=== PATIENT | female | born 1980 | race Caucasian/White ===

== ENCOUNTER 2018-08-20 17:32 | Inpatient (IN) | payer MEDICAID, SELFPAY ==
[2018-08-20 17:33] VITALS: BP 142/110; PULSE 120; RESP 18; TEMP 36.8; O2SAT 94; BMI 23.9
[2018-08-20 18:54] LABS: ALB/GLOB Ratio 0.9 RATIO (0.9-2.4); AST(SGOT) 82 U/L (15-37); Alanine Aminotransfer ALT/SGPT 89 U/L (13-56); Albumin, Serum 3.5 g/dL (3.2-5.0); Alkaline Phosphatase 77 U/L (45-117); Anion Gap 10 (5-15); BUN 27 mg/dL (7-18); BUN/Creat Ratio 33.4 RATIO (10-20); Calcium,Total 8.4 mg/dL (8.5-10.1); Chloride 111 mmol/L (98-107); Creatinine, Serum 0.81 mg/dL (0.55-1.02); EST Glomerular Filtration Rate 85 mL/min (>60); Est Glom Filt Rate - Afr Amer 103 mL/min (>60); Estimated Creatinine Clearance 82.12 ml/min; Globulin 4.1 g/dL (2.2-4.2); Glucose 99 mg/dL (74-106); Potassium 3.5 mmol/L (3.5-5.1); Protein, Total 7.6 g/dL (6.4-8.2); Sodium Level 148 mmol/L (136-145)
[2018-08-20 18:55] LABS: Absolute Lymphocyte Count 1.89 X10^3/ul (0.83-4.51); Absolute Neutrophil Count 2.2 X10^3/uL (2.0-7.7); Basophil# 0.22 X10^3/uL; Basophil% 4.4 % (0-1); Eosinophil# 0.19 X10^3/uL; Eosinophils% 3.8 % (0-5); Hemoglobin 15.5 g/dl (12.0-15.0); Lymphocyte # 1.89 X10^3/ul (4.0); Lymphocyte % 37.6 % (19-41); Mean Corpuscular Hgb 32.5 pg (27.0-32.0); Mean Corpuscular Volume 98.5 fL (81-99); Mean Platelet Vol. 8.7 fl (6.2-12.0); Monocyte# 0.52 X10^3/uL; Monocyte% 10.3 % (0-10); Neutrophil # 2.18 X10^3/uL (2.7-7.7); Neutrophil % 43.3 % (47-70); POSITIVE COUNT NO; POSITIVE DIFFERENTIAL NO; POSITIVE MORPHOLOGY NO; Platelet Count 237 K/mm3 (150-450); RBC Distribution Width CV 16.3 % (11.6-14.6); RBC Distribution Width SD 59.4 fl (35.1-43.9); Red Blood Count 4.77 M/mm3 (4.2-5.4)
--- NOTE | 2018-08-20 19:11 | ED.RN ---
DR DUNBAR NOTIFIED OF ETOH RESULTS
[2018-08-20 19:33] VITALS: PULSE 100; RESP 16; O2SAT 98
--- NOTE | 2018-08-20 19:38 | PCM.HP.STD ---
Problem List (1) Alcohol poisoning Status: Acute Qualifiers: Encounter type: initial encounter History of Present Illness Date of Admission: 08/20/18 Chief Complaint: alcohol intoxication The patient is a 38 year old female patient with a intermediate history of alcohol abuse. The patient is unable to provide history ,however, her fiancee tells me that she drank 3/4 of a bottle of 42proof alcohol this am and then he confronted her with her drinking. He communicated with the new vision coordinator here and was encouraged to bring her here for evaluation and treatment. She became belligerent and told him that if she were coming here for that then she would be very drunk and then drank over 12 shots of alcohol in a short period of time. Unable to obtain further history as the patient is currently very difficult to arouse. Current alcohol level is 498. She will be admitted for observation of alcohol poisoning. Past Medical History Allergies No Known Allergies Allergy (Verified 08/20/18 17:38) Home Medications: Ambulatory Orders Medication Instructions Recorded NK 08/20/18 Smoking Status: Never smoker - *Family History Maternal History Items: - - unable to obtain Review of Systems Unable to obtain accurate/complete ROS d/t: patient unable to communicate during my evaluation VTE Information - Inpt Only VTE Present on Admission: No VTE Mechan Device Prophylaxis: SCD's VTE Pharm Prophylaxis ordered?: No Patient Problems: Active and Suspected Problems Alcohol poisoning (Acute) - Physical Exam General: Lethargic, - - difficult to arouse HEENT: Atraumatic, Normocephalic Neck: Supple Lungs: Clear to auscultation, Normal air movement Cardiovascular: Regular rate, No murmurs Abdomen: Bowel Sounds Present, Soft Extremities: No edema Skin: No rashes Musculoskeletal: No Tenderness to Palpation of Joints or Extremities Neurological: - - patient is stuporous Psych/Mental Status: Normal Affect, Appropriate Vital Signs Temp Pulse Resp BP Pulse Ox 98.2 F 100 16 142/110 H 98 08/20/18 17:33 08/20/18 19:33 08/20/18 19:33 08/20/18 17:33 08/20/18 19:33 Oxygen Delivery Method Room Air Weight: 139 lb 8.842 oz Body Mass Index (BMI) 23.9 Laboratory Tests Past 24 Hrs 12/17/18 12/17/18 12/17/18 18:24 18:24 18:24 WBC 5.0 RBC 4.77 Hgb 15.5 H Hct 47.0 MCV 98.5 MCH 32.5 H MCHC 33.0 RDW 16.3 H RDW Differential 59.4 H Plt Count 237 MPV 8.7 Immature Gran % (Auto) 0.600 Neut % (Auto) 43.3 L Lymph % (Auto) 37.6 Kay % (Auto) 10.3 H Eos % (Auto) 3.8 Baso % (Auto) 4.4 H Absolute Neuts (auto) 2.2 Absolute Lymphs (auto) 1.89 Total Counted Not Reportable Sodium 148 H Potassium 3.5 Chloride 111 H Carbon Dioxide 27.0 Anion Gap 10 BUN 27 H Creatinine 0.81 Estim Creat Clear Calc 82.12 Est GFR (MDRD) Af Amer 103 Est GFR (MDRD) Non-Af 85 BUN/Creatinine Ratio 33.4 H Glucose 99 Calcium 8.4 L Total Bilirubin 0.20 AST 82 H ALT 89 H Alkaline Phosphatase 77 Total Protein 7.6 Albumin 3.5 Globulin 4.1 Albumin/Globulin Ratio 0.9 Ethyl Alcohol 498.0 H* Assessment/Plan All Active Problems Alcohol poisoning (Acute) Alcohol poisoning- Admit to medical surgical floor. IV D51/2normal saline at 75cc/hour. BMP, ETOH level in am. If patient requests [facility] consult in am then proceed to admit patient to that program. DVT Prophylaxis- SCDs Code Visit OBSV E&M: 01310 Initial observation care L2
--- NOTE | 2018-08-20 19:41 | ED.DCSUM_ITS ---
- ER Visit Summary Date of Service: 08/20/18 Chief Complaint: Requesting alcohol detox History of Present Illness: The patient is a 38 F presenting with significant other requesting alcohol detox. Patient has a history of alcoholism. She went through a detox program in an outside facility 2 weeks ago and started drinking again. She drinks up to 24 shots a day, last drink was just prior to arrival. Patient's significant other states that she does not take any other drugs. Physical Examination: Vital signs within normal limits. Significantly intoxicated female easily arousable and acting the airway. Head normocephalic. No conjunctival pallor. Moist mucous membranes. No JVD. Heart regular rate and rhythm, lungs sounds clear. Abdomen soft nontender. Extremities nontender nonedematous skin normal, no rash patient was alert. She was able to ambulate albeit unsteady Test Results: CBC and chemistry showed mild dehydration, ethanol level elevated at 498 Emergency Department Course and Treatment: Patient presented due to concern for requesting detox. Workup of the patient shows her to have an ethanol level that would be consistent with alcohol poisoning. I believe she requires admission for observation. If the patient wishes to stay for detox when she is more sober, that will be addressed as an inpatient. Disposition: Admission Impression: 1. Alcohol poisoning This note was generated with [employer] dictation software. It may contain incorrect words, spelling, and punctuation that were not noted in review of the chart prior to signing ED Disposition - Plan for ED Patient: Chief Complaint: ETOH Intox Referrals: Care Physician,No Primary [Primary Care Provider] -
[2018-08-20 21:11] VITALS: BMI 24.7
[2018-08-20 21:23] VITALS: BP 132/99; PULSE 103; RESP 16; TEMP 36.7; O2SAT 95
[2018-08-20 21:26] VITALS: BMI 24.8
[2018-08-20] MEDS: 0.9% NaCl Peripheral Flush Adult/Peds IV (22:08)
[2018-08-20] MEDS: LORazepam 2 MG/ML Syringe IV (22:08)
[2018-08-21] VITALS (9 sets, daily range): BP systolic 123–164; BP diastolic 82–115; PULSE 88–134; RESP 16–18; TEMP 36.3–37.3; O2SAT 95–100
[2018-08-21] MEDS: LORazepam 2 MG/ML Syringe IV ×2 (03:25→06:22)
[2018-08-21] MEDS: hydrOXYzine PAM 25 MG Capsule 50 MG PO ×3 (05:09→19:19)
[2018-08-21] MEDS: 0.9% NaCl Peripheral Flush Adult/Peds IV ×3 (06:23→23:09)
[2018-08-21] MEDS: Folic Acid 1 MG Tablet PO (07:53)
[2018-08-21] MEDS: Thiamine Hydrochloride 100 MG Tablet PO (07:53)
[2018-08-21] MEDS: LORazepam 1 MG Tablet 2 MG PO (07:53)
--- NOTE | 2018-08-21 09:33 | PN_ITS ---
Patient Problems: Active and Suspected Problems Alcohol poisoning (Acute) Subjective: Patient is a 38-year-old lady with history of alcohol dependence who presented to the emergency department intoxicated with alcohol level of 498. Patient did express a desire to undergo medical stabilization. Subsequently admitted to be managed with the [facility] protocol Objective: GENERAL: Tremulous at rest HEENT: Atraumatic; EYES; Anicteric, Normal Conjunctiva NECK; supple, normal thyroid, RESPIRATORY: Diminished to auscultation bilaterally, CARDIOVASCULAR: Regular S1 S2, no audible murmurs GI: soft, non-tender, normoactive bowel sounds, : No Renal angle tenderness; EXTREMITIES: No edema, no clubbing, no cyanosis. MUSCULOSKELETAL: No Joint Tenderness; NEURO: Awake; no lateralizing signs. SKIN: No Rash PSYCH; Normal affect Vitals/I&O's: Vital Signs Temp Pulse Resp BP Pulse Ox 98.0 F 134 H 16 130/82 H 95 08/21/18 07:32 08/21/18 07:32 08/21/18 07:32 08/21/18 07:32 08/21/18 07:32 Oxygen Delivery Method Room Air Weight: 62.4 kg Body Mass Index (BMI) 24.7 Intake and Output for Last 24 Hours 08/19/18 08/20/18 08/21/18 23:59 23:59 23:59 Intake Total 1200 / 1200 Balance 1200 / 1200 Laboratory Results 08/20/18 18:24: WBC 5.0, RBC 4.77, Hgb 15.5 H, Hct 47.0, MCV 98.5, MCH 32.5 H, MCHC 33.0, RDW 16.3 H, RDW Differential 59.4 H, Plt Count 237, MPV 8.7, Immature Gran % (Auto) 0.600, Neut % (Auto) 43.3 L, Lymph % (Auto) 37.6, Barber % (Auto) 10.3 H, Eos % (Auto) 3.8, Baso % (Auto) 4.4 H, Absolute Neuts (auto) 2.2, Absolute Lymphs (auto) 1.89, Total Counted Not Reportable 08/20/18 18:24: Sodium 148 H, Potassium 3.5, Chloride 111 H, Carbon Dioxide 27.0, Anion Gap 10, BUN 27 H, Creatinine 0.81, Estim Creat Clear Calc 82.12, Est GFR (MDRD) Af Amer 103, Est GFR (MDRD) Non-Af 85, BUN/Creatinine Ratio 33.4 H, Glucose 99, Calcium 8.4 L, Total Bilirubin 0.20, AST 82 H, ALT 89 H, Alkaline Phosphatase 77, Total Protein 7.6, Albumin 3.5, Globulin 4.1, Albumin/Globulin Ratio 0.9 08/20/18 18:24: Ethyl Alcohol 498.0 H* Current Medications [facility] ([facility] Last Admin: 08/21/18 07:53 Dose: 1 mg Hydroxyzine Pamoate (Vistaril Pamoate Capsule) 50 mg PO Q6H PRN PRN PRN Reason: Mild Anxiety (score 1/3) Last Admin: 08/21/18 05:09 Dose: 50 mg Influenza Virus Vaccine Quadrival (Fluarix/Fluzone) 0.5 ml IM .ONCE ONE Stop: 08/21/18 10:01 Last Admin: 08/21/18 09:26 Dose: 0.5 ml Lorazepam (Ativan) 2 mg PO Q2H PRN PRN; Protocol PRN Reason: CIWA score > 8 but <15 Last Admin: 08/21/18 07:53 Dose: 2 mg Lorazepam (Ativan) 2 mg PO UD PRN; Protocol PRN Reason: CIWA score >/=15. Lorazepam (Ativan) 2 mg IV Q2H PRN PRN; Protocol PRN Reason: CIWA score > 8 but <15 Lorazepam (Ativan) 2 mg IV UD PRN; Protocol PRN Reason: CIWA score >/=15. Last Admin: 08/21/18 06:22 Dose: 2 mg Magnesium Hydroxide (Milk Of Magnesia) 30 ml PO DAILY PRN PRN PRN Reason: Constipation Nutritional Formula (Lactose Free) (Ensure Enlive) 120 ml PO 4X/DAY [facility] Last Admin: 08/21/18 09:26 Dose: 120 ml Sodium Chloride () 5 - 15 ml IV UD PRN PRN Reason: SALINE FLUSH Last Admin: 08/21/18 06:23 Dose: 10 ml Thiamine HCl (Vitamin B1) [facility] Last Admin: 08/21/18 07:53 Dose: 100 mg Medical Necessity - Tobacco Use Smoking Status: Never smoker Assessment/Plan All Active Problems Alcohol poisoning (Acute) Patient is a 38-year-old lady with history of alcohol dependence who presented to the emergency department intoxicated with alcohol level of 498 patient did express a desire to undergo medical stabilization. Subsequently admitted to be managed with the [facility] protocol 1. Acute alcohol intoxication on presentation 2. Early alcohol withdrawal: Patient has been admitted to regular nursing floor currently being managed with the [facility] medical stabilization protocol using using Librium 3. Chronic alcohol dependence patient was counseled on cessation 4. Acute alcohol hepatitis monitoring patient liver function test 5. DVT prophylaxis low risk did encourage early ambulation Active Medications Folic Acid (Folic Acid) [facility] Last Admin: 08/21/18 07:53 Dose: 1 mg Hydroxyzine Pamoate (Vistaril Pamoate Capsule) 50 mg PO Q6H PRN PRN PRN Reason: Mild Anxiety (score 1/3) Last Admin: 08/21/18 05:09 Dose: 50 mg Influenza Virus Vaccine Quadrival (Fluarix/Fluzone) 0.5 ml IM .ONCE ONE Stop: 08/21/18 10:01 Last Admin: 08/21/18 09:26 Dose: 0.5 ml Lorazepam (Ativan) 2 mg PO Q2H PRN PRN; Protocol PRN Reason: CIWA score > 8 but <15 Last Admin: 08/21/18 07:53 Dose: 2 mg Lorazepam (Ativan) 2 mg PO UD PRN; Protocol PRN Reason: CIWA score >/=15. Lorazepam (Ativan) 2 mg IV Q2H PRN PRN; Protocol PRN Reason: CIWA score > 8 but <15 Lorazepam (Ativan) 2 mg IV UD PRN; Protocol PRN Reason: CIWA score >/=15. Last Admin: 08/21/18 06:22 Dose: 2 mg Magnesium Hydroxide (Milk Of Magnesia) 30 ml PO DAILY PRN PRN PRN Reason: Constipation Nutritional Formula (Lactose Free) (Ensure Enlive) 120 ml PO 4X/DAY [facility] Last Admin: 08/21/18 09:26 Dose: 120 ml Sodium Chloride () 5 - 15 ml IV UD PRN PRN Reason: SALINE FLUSH Last Admin: 08/21/18 06:23 Dose: 10 ml Thiamine HCl (Vitamin B1) [facility] Last Admin: 08/21/18 07:53 Dose: 100 mg Code Visit Inpatient E&M: 16509 Subs Hosp L3
[2018-08-21] MEDS: Lactated Ringers 1,000 ML 125 ML IV (10:04)
[2018-08-21] MEDS: chlordiazePOXIDE 25 MG Capsule 50 MG PO ×3 (10:04→22:23)
[2018-08-21 10:14] LABS: Lipase 689 U/L (73-393)
[2018-08-21] MEDS: Methocarbamol 750 MG Tablet PO ×2 (13:19→19:19)
[2018-08-21] MEDS: Ibuprofen 600 MG Tablet PO ×2 (13:19→22:23)
[2018-08-21] MEDS: Ondansetron ODT 4 MG Tablet PO ×2 (13:20→19:20)
[2018-08-21] MEDS: traZODone 50 MG Tablet PO (22:23)
[2018-08-21] MEDS: Dicyclomine 10 MG Capsule 20 MG PO (22:23)
[2018-08-21] MEDS: hydrALAZINE 20 MG/ML Vial 10 MG IV (23:08)
[2018-08-22] VITALS (7 sets, daily range): BP systolic 119–153; BP diastolic 68–110; PULSE 83–103; RESP 16–18; TEMP 36.4–36.6; O2SAT 96–100
[2018-08-22] MEDS: Methocarbamol 750 MG Tablet PO ×4 (01:31→20:20)
[2018-08-22] MEDS: hydrOXYzine PAM 25 MG Capsule 50 MG PO ×4 (01:31→20:20)
[2018-08-22] MEDS: chlordiazePOXIDE 25 MG Capsule 50 MG PO ×3 (03:53→20:20)
[2018-08-22] MEDS: Ondansetron ODT 4 MG Tablet PO (07:15)
[2018-08-22] MEDS: Ibuprofen 600 MG Tablet PO (07:49)
[2018-08-22] MEDS: Folic Acid 1 MG Tablet PO (07:49)
[2018-08-22] MEDS: Thiamine Hydrochloride 100 MG Tablet PO (07:49)
[2018-08-22] MEDS: Multivitamins,Therapeutic Tablet 1 TABLET PO (07:52)
--- NOTE | 2018-08-22 14:01 | PN_ITS ---
Patient Problems: Active and Suspected Problems Alcohol poisoning (Acute) Subjective: Patient seen much more awake and coherent but still remains tremulous at rest Objective: GENERAL: Tremulous at rest HEENT: Atraumatic; EYES; Anicteric, Normal Conjunctiva NECK; supple, normal thyroid, RESPIRATORY: Diminished to auscultation bilaterally, CARDIOVASCULAR: Regular S1 S2, no audible murmurs GI: soft, non-tender, normoactive bowel sounds, : No Renal angle tenderness; EXTREMITIES: No edema, no clubbing, no cyanosis. MUSCULOSKELETAL: No Joint Tenderness; NEURO: Awake; no lateralizing signs. SKIN: No Rash PSYCH; Normal affect Vitals/I&O's: Vital Signs Temp Pulse Resp BP Pulse Ox 97.5 F L 103 H 18 142/98 H 99 08/22/18 08:02 08/22/18 08:02 08/22/18 08:02 08/22/18 08:02 08/22/18 07:54 Oxygen Delivery Method Room Air Weight: 62.4 kg Body Mass Index (BMI) 24.7 Intake and Output for Last 24 Hours 08/20/18 08/21/18 08/22/18 23:59 23:59 23:59 Intake Total 1200 / 1200 1000 / 1000 Balance 1200 / 1200 1000 / 1000 Current Medications Acetaminophen (Tylenol) 500 mg PO Q4H PRN PRN PRN Reason: Temp > 100.4 F Al Hydroxide/Mg Hydroxide (Mylanta Ii) 30 ml PO Q6H PRN PRN PRN Reason: dyspesia Bisacodyl (Dulcolax) 10 mg RECTAL DAILY PRN PRN Reason: Constipation Chlordiazepoxide (Librium) 50 mg PO Q8H LUKAS; Taper Stop: 08/24/18 11:59 Last Admin: 08/22/18 11:32 Dose: 50 mg Dicyclomine HCl (Bentyl) 20 mg PO Q6H PRN PRN PRN Reason: abdominal discomfort Last Admin: 08/21/18 22:23 Dose: 20 mg Folic Acid (Folic Acid) 1 mg PO DAILYCM [facility] Last Admin: 08/22/18 07:49 Dose: 1 mg Hydralazine HCl (Apresoline Iv) 10 mg IV Q6H PRN PRN PRN Reason: BLOOD PRESSURE,SBP>160 Last Admin: 08/21/18 23:08 Dose: 10 mg Hydroxyzine Pamoate (Vistaril Pamoate Capsule) 50 mg PO Q6H PRN PRN PRN Reason: Mild Anxiety (score 1/3) Last Admin: 08/22/18 07:48 Dose: 50 mg Ibuprofen (Motrin) 600 mg PO Q8H PRN PRN PRN Reason: Mild-Moderate Pain (1-5/10) Last Admin: 08/22/18 07:49 Dose: 600 mg Loperamide HCl (Imodium) 2 - 4 mg PO UD PRN PRN Reason: LOOSE STOOLS Lorazepam (Ativan) 1 mg IV Q4H PRN PRN PRN Reason: Severe Anxiety Lorazepam (Ativan) 2 mg IV X1 PRN PRN Reason: Seizure Magnesium Hydroxide (Milk Of Magnesia) 30 ml PO DAILY PRN PRN PRN Reason: Constipation Methocarbamol (Methocarbamol) 750 mg PO Q6H PRN PRN PRN Reason: Muscle Aches Last Admin: 08/22/18 07:49 Dose: 750 mg [facility]ivit[facility] ([facility]itamin) [facility] Last Admin: 08/22/18 07:52 Dose: 1 tablet Ondansetron HCl (Zofran Odt) 4 mg PO Q6H PRN PRN PRN Reason: NAUSEA Last Admin: 08/22/18 07:15 Dose: 4 mg Senna (Senokot) 1 tablet PO QHS PRN PRN Reason: Constipation Sodium Chloride () 5 - 15 ml IV UD PRN PRN Reason: SALINE FLUSH Last Admin: 08/21/18 23:09 Dose: 10 ml Thiamine HCl (Vitamin B1) [facility] Last Admin: 08/22/18 07:49 Dose: 100 mg Trazodone HCl (Desyrel) 50 mg PO QHS [facility] Last Admin: 08/21/18 22:23 Dose: 50 mg Medical Necessity - Tobacco Use Smoking Status: Never smoker Assessment/Plan All Active Problems Alcohol poisoning (Acute) Patient is a 38-year-old lady with history of alcohol dependence who presented to the emergency department intoxicated with alcohol level of 498 patient did express a desire to undergo medical stabilization. Subsequently admitted to be managed with the [facility] protocol 1. Acute alcohol intoxication on presentation.; Resolved patient went into early withdrawal subsequently managed with the [facility] medical stabilization protocol using Librium 2. Early alcohol withdrawal: Patient has been admitted to regular nursing floor currently being managed with the [facility] medical stabilization protocol using using Librium 3. Chronic alcohol dependence patient was counseled on cessation 4. Acute alcohol hepatitis monitoring patient liver function test 5. DVT prophylaxis low risk did encourage early ambulation Code Visit Inpatient E&M: 80244 Subs Hosp L2
--- NOTE | 2018-08-22 15:57 | CHAPLAIN ---
inquired with RN about a visit with this referral; RN said pt was not wanting visits at this time
[2018-08-22] MEDS: traZODone 50 MG Tablet PO (20:20)
[2018-08-23] MEDS: hydrOXYzine PAM 25 MG Capsule 50 MG PO ×3 (02:15→10:03)
[2018-08-23] MEDS: Methocarbamol 750 MG Tablet PO ×2 (02:15→08:25)
[2018-08-23] MEDS: chlordiazePOXIDE 25 MG Capsule 50 MG PO (04:18)
[2018-08-23 04:21] VITALS: BP 131/86; PULSE 87; RESP 16; TEMP 36.6; O2SAT 97
[2018-08-23 08:22] VITALS: BP 138/104; PULSE 86; RESP 18; TEMP 36.4; O2SAT 99
[2018-08-23] MEDS: Folic Acid 1 MG Tablet PO (08:25)
[2018-08-23] MEDS: Thiamine Hydrochloride 100 MG Tablet PO (08:25)
[2018-08-23] MEDS: Multivitamins,Therapeutic Tablet 1 TABLET PO (08:25)
[2018-08-23 08:27] VITALS: BP 138/104; PULSE 86; RESP 18; TEMP 36.4
--- NOTE | 2018-08-23 09:36 | DCINST_ITS ---
- Discharge Diagnoses Current Active Problems: Current Active and Chronic Problems Alcohol poisoning (Acute) You will use the following diet at home:: No restrictions Allergies/Adverse Reactions: Allergies No Known Allergies Allergy (Verified 08/20/18 17:38) Medications to take at Discharge hydrOXYzine pamoate capsule [Vistaril pamoate capsule] 50 mg PO Q6H PRN PRN #20 capsule 08/23/18 The following prescriptions were given: hydrOXYzine pamoate capsule [Vistaril pamoate capsule] 50 mg PO Q6H PRN PRN #20 capsule PRN Reason: Mild Anxiety (score 1/3) Primary Care Physician: Care Physician,No Primary [Primary Care Provider] - Test Results: Test results from this visit will be discussed in further detail at your follow- up appointment, if applicable. Proposed Discharge Date: 08/23/18
--- NOTE | 2018-08-23 09:38 | DS.PCM_ITS ---
Discharge Date and Diagnosis Date of Admission: 08/20/18 Date of Discharge: 08/23/18 - Primary Discharge Diagnosis Active and Suspected Problems Alcohol poisoning (Acute) Hospital Course and Treatment Summary of Care Provided: Patient is a 38-year-old lady with history of alcohol dependence who presented to the emergency department intoxicated with alcohol level of 498 patient did express a desire to undergo medical stabilization. Subsequently admitted to be managed with the [facility] protocol 1. Acute alcohol intoxication on presentation.; Resolved patient went into early withdrawal subsequently managed with the [facility] medical stabilization protocol using Librium 2. Early alcohol withdrawal: Patient has been admitted to regular nursing floor currently being managed with the [facility] medical stabilization protocol using using Librium 3. Chronic alcohol dependence patient was counseled on cessation 4. Acute alcohol hepatitis monitoring patient liver function test 5. DVT prophylaxis low risk did encourage early ambulation Objective: GENERAL: Cooperative HEENT: Atraumatic; EYES; Anicteric, Normal Conjunctiva NECK; supple, normal thyroid, RESPIRATORY: Diminished to auscultation bilaterally, CARDIOVASCULAR: Regular S1 S2, no audible murmurs GI: soft, non-tender, normoactive bowel sounds, : No Renal angle tenderness; EXTREMITIES: No edema, no clubbing, no cyanosis. - Physical Exam Vital Signs Temp Pulse Resp BP Pulse Ox 97.5 F L 86 18 138/104 H 99 08/23/18 08:27 08/23/18 08:27 08/23/18 08:27 08/23/18 08:27 08/23/18 08:22 Oxygen Delivery Method Room Air Weight: 62.4 kg Body Mass Index (BMI) 24.7 Intake and Output for Last 24 Hours 08/21/18 08/22/18 08/23/18 23:59 23:59 23:59 Intake Total 1200 / 1200 1999 Balance 1200 / 1200 1999 Discharge Diet: No Restrictions Home Medications: Medications to take at Discharge hydrOXYzine pamoate capsule [Vistaril pamoate capsule] 50 mg PO Q6H PRN PRN #20 capsule 08/23/18 Following Prescrptions Were Given to Patient: hydrOXYzine pamoate capsule [Vistaril pamoate capsule] 50 mg PO Q6H PRN PRN #20 capsule PRN Reason: Mild Anxiety (score 1/3) Primary Care Physician: Care Physician,No Primary [Primary Care Provider] - Disposition: Home Minutes spent on discharge:: 35 Patient Condition:: Stable Medical Necessity - Tobacco Use Smoking Status: Never smoker Meaningful Use Info Meaningful Use Diagnoses (Choose all that apply): None applicable Code Visit Inpatient E&M: 15712 Disch Hosp
[2018-08-23] MEDS: Ibuprofen 600 MG Tablet PO (10:08)
--- NOTE | 2018-08-24 14:03 | NURSING ---
PTS BF CALLED ASKING ABOUT PRESCRIPTION PT WAS SUPPOSED TO HAVE AND SHE THOUGHT SHE LOST. PRESCRIPTION WAS SENT TO [facility]. THIS NURSE SPOKE WITH CHRISTI IN PHARMACY AND HE WILL TRANSFER THE PRESCRIPTION TO PTS [facility]. PHONE # [phone]
== END 2018-08-23 11:17 | disposition home or self-care (01) | DRG 775 ==
LOC: ED 19:19 → MS3 20:58 → PCU 08-21 12:38
PROVIDERS: Admitting Provider Family Medicine; Emergency Provider Emergency Medicine; Visit Provider Internal Medicine
DX: F10.229 Alcohol dependence with intoxication, unspecified (principal); T51.0X1A Toxic effect of ethanol, accidental (unintentional), initial encounter; F10.239 Alcohol dependence with withdrawal, unspecified; Y90.8 Blood alcohol level of 240 mg/100 ml or more; K70.10 Alcoholic hepatitis without ascites; E86.0 Dehydration; Z23 Encounter for immunization
CPT/HCPCS: 36415; 80053; 80320; 83690; 85025; 97802; 99282; J7120; 90686; A4216; G0480

== ENCOUNTER 2018-08-30 18:29 | Emergency (ER) | payer MEDICAID, SELFPAY ==
[2018-08-30 18:30] VITALS: BP 152/115; PULSE 95; RESP 18; TEMP 36.7; O2SAT 95; BMI 24.1
[2018-08-30 19:30] VITALS: BP 140/101; PULSE 102; RESP 18; O2SAT 98
[2018-08-30 19:30] LABS: Absolute Lymphocyte Count 1.59 X10^3/ul (0.83-4.51); Absolute Neutrophil Count 1.6 X10^3/uL (2.0-7.7); Basophil# 0.17 X10^3/uL; Basophil% 4.3 % (0-1); Eosinophil# 0.17 X10^3/uL; Eosinophils% 4.3 % (0-5); Hematocrit 47.1 % (37-47); Hemoglobin 15.8 g/dl (12.0-15.0); Lymphocyte # 1.59 X10^3/ul (4.0); Lymphocyte % 40.1 % (19-41); Mean Corp Hgb Conc 33.5 g/gl (32-36); Mean Corpuscular Hgb 33.1 pg (27.0-32.0); Mean Corpuscular Volume 98.7 fL (81-99); Mean Platelet Vol. 8.6 fl (6.2-12.0); Monocyte# 0.46 X10^3/uL; Monocyte% 11.6 % (0-10); Neutrophil # 1.57 X10^3/uL (2.7-7.7); Neutrophil % 39.4 % (47-70); POSITIVE COUNT NO; POSITIVE DIFFERENTIAL NO; POSITIVE MORPHOLOGY NO; Platelet Count 245 K/mm3 (150-450); RBC Distribution Width CV 16.4 % (11.6-14.6); RBC Distribution Width SD 58.9 fl (35.1-43.9); Red Blood Count 4.77 M/mm3 (4.2-5.4)
[2018-08-30] MEDS: 0.9% Normal Saline 1,000 ML 150 ML IV (19:36)
[2018-08-30] MEDS: Ondansetron 4 MG/2 ML Vial IV (19:36)
[2018-08-30 19:41] LABS: AST(SGOT) 153 U/L (15-37); Alanine Aminotransfer ALT/SGPT 101 U/L (13-56); Albumin, Serum 3.8 g/dL (3.2-5.0); Alkaline Phosphatase 74 U/L (45-117); Anion Gap 9 (5-15); BUN 8 mg/dL (7-18); BUN/Creat Ratio 9.4 RATIO (10-20); Bilirubin, Direct 0.14 mg/dL (0.00-0.30); Calcium,Total 8.2 mg/dL (8.5-10.1); Chloride 110 mmol/L (98-107); Creatinine, Serum 0.85 mg/dL (0.55-1.02); EST Glomerular Filtration Rate 80 mL/min (>60); Est Glom Filt Rate - Afr Amer 97 mL/min (>60); Estimated Creatinine Clearance 71.67 ml/min; Globulin 3.7 g/dL (2.2-4.2); Glucose 79 mg/dL (74-106); Lipase 513 U/L (73-393); Potassium 4.1 mmol/L (3.5-5.1); Protein, Total 7.5 g/dL (6.4-8.2); Sodium Level 146 mmol/L (136-145)
[2018-08-30 20:13] LABS: Pregnancy, Serum, hCG Quali. NEGATIVE Negative (0-9 Nonpreg)
--- NOTE | 2018-08-30 20:22 | ED.VISSUMM ---
- ER Visit Summary Date of Service: 08/30/18 Chief Complaint: Alcohol intoxication History of Present Illness: The patient is a 38 F who was recently admitted to the hospital and went to the [facility] program for alcohol withdrawal. Patient reportedly drank 24 shots of 80 proof vodka this evening. She is back requesting detox. Friend is with the patient apparently spoke with Gladys and from [facility] and advised her to come back in for admission. Physical Examination: Vital signs significant for blood pressure of 152/115. Patient sitting upright in bed. She is somewhat anxious. Heart is regular rate and rhythm. Lungs sounds are clear. Abdomen is soft and nontender. Neuro exam reveals reveals no focal deficits. She does appear to be intoxicated and needs reminders of where she is. Test Results: CBC was a white count of 4.0 and hemoglobin 15.8. Chemistry studies significant for a sodium of 146. LFTs revealed AST 153 and ALT 101. Her lipase is 513. test is negative. Alcohol is 372. Urine tox is negative. Emergency Department Course and Treatment: Patient was given IV fluids and Zofran. On repeat evaluation patient is resting comfortably. Her see was score at this time is only 7. She is carrying on a normal conversation and eating [employer]. I spoke with Jarad from [facility] who states they are not able to readmit for 30 days. They will be able to follow-up with her and give her some resources. I will have our manager social responsibility call them tomorrow as well. Patient will be given 1 tab of Librium to take tonight as she states she feels like she is already starting to get shaky. She will be given a prescription for 3 additional tabs to help her through tomorrow. Significant other will take her home at this time and care for her. Treatment Plan: [] Disposition: Discharge Impression: EtOH intoxication This note was generated with [employer] dictation software. It may contain incorrect words, spelling, and punctuation that were not noted in review of the chart prior to signing ED Disposition - Plan for ED Patient: Chief Complaint: ETOH Intox Referrals: Care Physician,No Primary [Primary Care Provider] -
[2018-08-30 20:56] LABS: Amphetamine Urine VISTA NEGATIVE (<1000 ng/mL); Barbiturate Urine VISTA NEGATIVE (< 200 ng/mL); Benzodiazepine Urine VISTA NEGATIVE (< 200 ng/mL); Cocaine Urine VISTA NEGATIVE (< 300 ng/mL); Ecstacy Urine VISTA NEGATIVE (< 500 ng/mL); Methadone Urine VISTA NEGATIVE (< 300 ng/mL); PCP Urine VISTA NEGATIVE (< 25 ng/mL); THC Urine VISTA NEGATIVE (< 50 ng/mL); Vista UDS pH Range 5
--- NOTE | 2018-08-30 21:37 | ED.RN ---
lab called with critical lab results. ETOH level 372. Dr. Duron made aware. no new orders at this time
--- NOTE | 2018-08-30 22:01 | ED.DEP ---
ED Disposition - Plan for ED Patient: Disposition: Home or Assisted Living Chief Complaint: ETOH Intox Instructions: ED Withdrawal Alcohol Prescriptions: Chlordiazepoxide [Librium] 50 mg PO TID PRN PRN #3 capsule PRN Reason: Alcohol Withdrawal Referrals: EIGHTY,ONE [STAFF PHYSICIAN] -
--- NOTE | 2018-08-30 22:16 | CM.ED ---
SOCIAL WORK NOTE RECEIVED CALL FROM Maxine DAHL REQUESTING THIS WORKER FOLLOW UP WITH PT FOR RESOURCES FOR SUBSTANCE ABUSE TREATMENT-ALCOHOL. PT WAS RECENTLY ADMITTED TO [facility] AND THEY WILL NOT ACCEPT HER BACK AT THIS TIME IT HAS BEEN LESS THAN 30 DAYS SINCE HER DISCHARGE. MET WITH PT IN ROOM. PT PROVIDED WITH LIST OF RESOURCES AND EDUCATION PROVIDED ON TREATMENT PROGRAMS. PT AND SIG OTHER DENY ANY OTHER NEEDS. UPDATED PT'S NURSE. PT TO BE DISCHARGED AT THIS TIME. DANTE LOWRY, SPACE OFFICER, BEAD WIRE TAPER.
[2018-08-30] MEDS: chlordiazePOXIDE 25 MG Capsule 50 MG PO (22:18)
== END 2018-08-30 22:20 | disposition home or self-care (01) ==
PROVIDERS: Emergency Provider Emergency Medicine
DX: F10.129 Alcohol abuse with intoxication, unspecified (principal); F32.9 Major depressive disorder, single episode, unspecified; Y90.8 Blood alcohol level of 240 mg/100 ml or more
CPT/HCPCS: 80048; 80076; 80307; 80320; 83690; 84703; 85025; 96361; 96374; 99285; J7030; A4216; G0480; J2405

== ENCOUNTER 2018-10-03 17:45 | Inpatient (IN) | payer MEDICAID, SELFPAY ==
[2018-10-03 17:48] VITALS: BP 147/100; PULSE 114; RESP 24; TEMP 37.1; O2SAT 100; BMI 23.2
[2018-10-03] MEDS: Ondansetron 4 MG/2 ML Vial IV (18:27)
[2018-10-03 19:00] LABS: ALB/GLOB Ratio 1.1 RATIO (0.9-2.4); AST(SGOT) 342 U/L (15-37); Alanine Aminotransfer ALT/SGPT 257 U/L (13-56); Albumin, Serum 3.9 g/dL (3.2-5.0); Alkaline Phosphatase 100 U/L (45-117); Anion Gap 12 (5-15); BUN 6 mg/dL (7-18); BUN/Creat Ratio 5.3 RATIO (10-20); Calcium,Total 8.2 mg/dL (8.5-10.1); Chloride 103 mmol/L (98-107); Creatinine, Serum 1.14 mg/dL (0.55-1.02); EST Glomerular Filtration Rate 57 mL/min (>60); Est Glom Filt Rate - Afr Amer 69 mL/min (>60); Estimated Creatinine Clearance 53.44 ml/min; Globulin 3.6 g/dL (2.2-4.2); Glucose 121 mg/dL (74-106); Lipase 863 U/L (73-393); Potassium 3.4 mmol/L (3.5-5.1); Protein, Total 7.5 g/dL (6.4-8.2); Sodium Level 146 mmol/L (136-145)
[2018-10-03 19:01] LABS: Absolute Lymphocyte Count 1.29 X10^3/ul (0.83-4.51); Absolute Neutrophil Count 0.7 X10^3/uL (2.0-7.7); Basophil# 0.05 X10^3/uL; Basophil% 1.9 % (0-1); Eosinophil# 0.07 X10^3/uL; Eosinophils% 2.7 % (0-5); Hematocrit 47.7 % (37-47); Hemoglobin 15.9 g/dl (12.0-15.0); Lymphocyte # 1.29 X10^3/ul (4.0); Lymphocyte % 49.8 % (19-41); Mean Corp Hgb Conc 33.3 g/gl (32-36); Mean Corpuscular Hgb 33.1 pg (27.0-32.0); Mean Corpuscular Volume 99.4 fL (81-99); Mean Platelet Vol. 8.9 fl (6.2-12.0); Monocyte# 0.44 X10^3/uL; Neutrophil # 0.73 X10^3/uL (2.7-7.7); Neutrophil % 28.2 % (47-70); Platelet Count 114 K/mm3 (150-450); RBC Distribution Width CV 15.4 % (11.6-14.6); White Blood Count 2.6 K/mm3 (4.4-11.0)
[2018-10-03 19:08] LABS: Differential Indicated SCAN CRITERIA MET; POSITIVE COUNT NO; POSITIVE DIFFERENTIAL YES; POSITIVE MORPHOLOGY NO
--- NOTE | 2018-10-03 19:17 | ED.RN ---
LAB CALLED WITH CRITICAL LAB RESULTS. ETOH LEVEL 524. DR. AGUILAR MADE AWARE
[2018-10-03 19:29] LABS: Differential Comment SCANNED
[2018-10-03 19:31] LABS: Mucous, Urine 0 SEEN /hpf (<or=2+); Red Blood Cells-Urine 0 SEEN /hpf (0-5)
--- NOTE | 2018-10-03 19:33 | ED.VISSUMM ---
- ER Visit Summary Date of Service: 10/03/18 Chief Complaint: Alcohol intoxication History of Present Illness: The patient is a 38 F who presents with alcohol intoxication. Patient states she is concerned about going through alcohol withdrawal. Patient states her last drink was 2 PM yesterday however the family of this with her said it is 2:00 today. Patient states she has been having some nausea and vomiting. Patient denies any diarrhea. Patient states she does have some mild abdominal pain. Patient denies any fevers or chills. Physical Examination: Vital signs are stable except for mild tachypnea of 24 and a mild tachycardia of 114. Patient appears to be intoxicated on examination. Oral mucosa is pink and moist. Neck is supple. Trachea is midline. There is no JVD noted. Heart was regular and tachycardic. Lungs were clear and equal bilaterally. Abdomen is soft. Bowel sounds are normal. There is some mild diffuse tenderness. There is no rebound or guarding noted. Cranial nerves II through XII are intact. There are no focal motor or sensory deficits noted. The remaining physical exam is within normal limits. Test Results: CBC shows a white blood cell count 2.6. Platelets were 114. Creatinine was slightly elevated at 1.14. Lipase was elevated at 863. ALT was slightly elevated at 257 and AST was elevated at 342. Serum alcohol level was elevated at 524. Urinalysis shows evidence of urinary tract infection. Emergency Department Course and Treatment: Patient states she was starting to feel anxious and shaky. Patient was given a dose of phenobarbital and Ativan. Patient was also given a dose of Bactrim for the urinary tract infection. Patient is agreeable to admission. Case was discussed with the hospitalist. He will be in to evaluate the patient and admit the patient to his service. Patient and family understood and were agreeable with the plan. All questions were answered. Disposition: Admit to hospital Impression: 1. Alcoholic pancreatitis This note was generated with Dojo dictation software. It may contain incorrect words, spelling, and punctuation that were not noted in review of the chart prior to signing ED Disposition - Plan for ED Patient: Disposition: Acute Care Hospital [facility] Diagnosis: Alcoholic pancreatitis Referrals: Care Physician,No Primary [Primary Care Provider] -
[2018-10-03 19:34] LABS: Internal QC Validated? YES +Cl - CLEAR BKGD; Pregnancy, Urine Negative Negative
[2018-10-03 19:37] LABS: Color, Urine Yellow (Yellow); Glucose, Dipstick Normal (Normal); Ketone-Dipstick Negative (Negative); Leukocyte Esterase-Dipstick 500 /ul (Negative); Nitrite-Dipstick Negative (Negative); Occult Blood-Urine 50 /ul (Negative); Protein-Dipstick 30 mg/dl (Negative); Urine Bilirubin Dipstick Negative (Negative); Urine Clarity Cloudy (Clear); Urine Urobilinogen 4 mg/dl (Normal)
--- NOTE | 2018-10-03 19:37 | ED.DCSUM_ITS ---
- ER Visit Summary Date of Service: 10/03/18 Chief Complaint: Alcohol intoxication History of Present Illness: The patient is a 38 F who presents with alcohol intoxication. Patient states she is concerned about going through alcohol withdrawal. Patient states her last drink was 2 PM yesterday however the family of this with her said it is 2:00 today. Patient states she has been having some nausea and vomiting. Patient denies any diarrhea. Patient states she does have some mild abdominal pain. Patient denies any fevers or chills. Physical Examination: Vital signs are stable except for mild tachypnea of 24 and a mild tachycardia of 114. Patient appears to be intoxicated on examination. Oral mucosa is pink and moist. Neck is supple. Trachea is midline. There is no JVD noted. Heart was regular and tachycardic. Lungs were clear and equal bilaterally. Abdomen is soft. Bowel sounds are normal. There is some mild diffuse tenderness. There is no rebound or guarding noted. Cranial nerves II through XII are intact. There are no focal motor or sensory deficits noted. The remaining physical exam is within normal limits. Test Results: CBC shows a white blood cell count 2.6. Platelets were 114. Creatinine was slightly elevated at 1.14. Lipase was elevated at 863. ALT was slightly elevated at 257 and AST was elevated at 342. Serum alcohol level was elevated at 524. Urinalysis shows evidence of urinary tract infection. Emergency Department Course and Treatment: Patient states she was starting to feel anxious and shaky. Patient was given a dose of phenobarbital and Ativan. Patient was also given a dose of Bactrim for the urinary tract infection. Patient is agreeable to admission. Case was discussed with the hospitalist. He will be in to evaluate the patient and admit the patient to his service. Patient and family understood and were agreeable with the plan. All questions were answered. Disposition: Admit to hospital Impression: 1. Alcoholic pancreatitis This note was generated with VIOSO dictation software. It may contain incorrect words, spelling, and punctuation that were not noted in review of the chart prior to signing ED Disposition - Plan for ED Patient: Disposition: Acute Care Hospital [facility] Diagnosis: Alcoholic pancreatitis Referrals: Care Physician,No Primary [Primary Care Provider] -
[2018-10-03 19:40] LABS: Bacteria 4+ /hpf (None Seen); Squamous Epithelial Cells - UA 5-10 SEEN /hpf (5-10); White Blood Cells 50-100 SEEN /hpf (0-5)
[2018-10-03 19:50] LABS: Amphetamine Urine VISTA NEGATIVE (<1000 ng/mL); Barbiturate Urine VISTA NEGATIVE (< 200 ng/mL); Benzodiazepine Urine VISTA POSITIVE (< 200 ng/mL); Cocaine Urine VISTA NEGATIVE (< 300 ng/mL); Ecstacy Urine VISTA NEGATIVE (< 500 ng/mL); Methadone Urine VISTA NEGATIVE (< 300 ng/mL); PCP Urine VISTA NEGATIVE (< 25 ng/mL); THC Urine VISTA POSITIVE (< 50 ng/mL); Vista UDS pH Range 6
[2018-10-03] MEDS: Smz/Tmp Ds Tablet 1 TABLET PO (19:55)
[2018-10-03] MEDS: LORazepam 0.5 MG Tablet PO (19:56)
[2018-10-03 20:00] VITALS: BMI 23.2
--- NOTE | 2018-10-03 20:08 | PCM.HP.STD ---
Problem List (1) Acute cystitis Status: Acute (2) Alcohol intoxication Status: Acute (3) History of alcohol withdrawal seizure Status: Chronic (4) Alcohol abuse Status: Chronic (5) Alcoholic pancreatitis Status: Chronic History of Present Illness Date of Admission: 10/03/18 Chief Complaint: Alcohol intoxication. The patient is a 38 year old F with past medical history as mentioned above presented to the emergency room because of alcohol intoxication. Patient stated that she is concerned that she is about to go into severe alcohol withdrawal. Her main presenting symptoms are hand shakiness and tremors, severe restlessness and anxiety, associated with persistent nausea and vomiting and her symptoms started mainly this morning after she stopped drinking alcohol. During my encounter with the patient, she was very anxious, irritable, walking around the room, goes back and forth to the trash can to throw up. Patient's boyfriend was at the bedside. She complained of abdominal pain that has been going on for several days, epigastric in location, dull aching pain, constant, associated with persistent nausea and vomiting, could not keep any liquids or food down to her stomach for the last couple of days and without aggravating or relieving factors. Also, she complained of bad smelling urine. She denied dysuria or hematuria. She denies fever or chills. She was admitted on August, for alcohol withdrawal for medical stabilization through [facility] program and she was discharged home but she relapsed and started to drink alcohol again almost immediately. At this time, patient is afebrile, tachycardic, blood pressure slightly elevated, tachypneic, pulse ox is maintained on room air. Her routine blood work was remarkable for leukopenia, neutropenia and thrombocytopenia, sodium of 146, potassium of 3.4, creatinine 1.14. LFT revealed elevated liver transaminases with normal bilirubin and alkaline phosphatase. Her lipase was 863. Urinalysis revealed cloudy urine, positive for leukocyte esterase, there was 50-100 WBCs and 4+ bacteria. Urine drug screen was positive for benzodiazepines and cannabinoids. Blood alcohol level was 524. She is being admitted for acute alcohol intoxication, acute on chronic alcoholic pancreatitis, acute cystitis, leukopenia/neutropenia and thrombocytopenia. Past Medical History Past Medical History (Chronic Problems): Chronic Problems History of alcohol withdrawal seizure (Chronic) Alcohol abuse (Chronic) Alcoholic pancreatitis (Chronic) Allergies No Known Allergies Allergy (Verified 10/03/18 17:52) Home Medications: Ambulatory Orders Medication Instructions Recorded NK 10/03/18 Surgical History: - - Back surgery. 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 Review of Systems Constitutional: Reports: Anorexia, Malaise, Weakness. Denies: Chills, Fever Eyes: Denies: Blurred vision, Double vision, Drainage, Redness HEENT: Denies: Difficulty Hearing, Ear Pain, Eye Pain, Nasal Congestion, Sore Throat Cardiovascular: Denies: Chest Pain, Chest Pressure, Chest Tightness, Heaviness, Light Headedness, Palpitations, Syncope Respiratory: Denies: Cough, Pleuritic Pain, Shortness of Breath, Sputum production, Wheezing Gastrointestinal: Reports: Abdominal Pain, Nausea, Vomiting. Denies: Constipation, Diarrhea Genitourinary: Denies: Dysuria, Frequency, Hematuria Musculoskeletal: Denies: Arm Pain, Back Pain, Foot Pain Skin: Denies: Dryness, Rash Neurological: Denies: Balance problems, Double vision, Change in Speech, Slurred speech, Confusion, Focal weakness, Headaches, Incoordination Psychiatric: Reports: Anxiety. Denies: Depression Endocrine: Denies: Change in Body Habitus, Polydipsia VTE Information - Inpt Only VTE Present on Admission: No VTE Mechan Device Prophylaxis: None VTE Pharm Prophylaxis ordered?: No Patient Problems: Active and Suspected Problems Acute cystitis (Acute) Alcohol intoxication (Acute) - Physical Exam General: Alert, Oriented x3, Cooperative, - - Anxious, restless. HEENT: Atraumatic, PERRLA, EOMI, Normocephalic Oral: Moist Mucosa, No Gingival or Mucosal Lesions/ Ulcerations Neck: Supple, No JVD, Negative Carotid Bruits, Trachea Midline, Thyroid Normal Size and Texture Lungs: Clear to auscultation, Normal air movement, No rhonchi, No wheeze, No rales Cardiovascular: Regular rate, Regular Rhythm, Normal S1, Normal S2, PMI Normal Abdomen: Bowel Sounds Present, Soft, Non Tender, Non-Distended, No Hepato-splenomegaly Extremities: No clubbing, No cyanosis, No edema Skin: No rashes, No breakdown Lymphatic: No Cervical, Supraclavicular, or Inguinal Adenopathy Neurological: Cranial nerves II-XII grossly intact, Motor Exam 5/5 strength throughout Psych/Mental Status: Anxious, Impulsive, Restless, Alert and oriented to time, place, person, mood and affect Vital Signs Temp Pulse Resp BP Pulse Ox 98.7 F 114 H 24 H 147/100 H 100 10/03/18 17:48 10/03/18 17:48 10/03/18 17:48 10/03/18 17:48 10/03/18 17:48 Weight: 127 lb Body Mass Index (BMI) 23.2 Laboratory Tests Past 24 Hrs 10/03/18 10/03/18 10/03/18 18:18 18:18 18:18 WBC 2.6 L RBC 4.80 Hgb 15.9 H Hct 47.7 H MCV 99.4 H MCH 33.1 H MCHC 33.3 RDW 15.4 H RDW Differential 56.0 H Plt Count 114 L MPV 8.9 Immature Gran % (Auto) 0.400 Neut % (Auto) 28.2 L Lymph % (Auto) 49.8 H [place] % (Auto) 17.0 H Eos % (Auto) 2.7 Baso % (Auto) 1.9 H Absolute Neuts (auto) 0.7 L Absolute Lymphs (auto) 1.29 Total Counted Not Reportable Differential Comment SCANNED Sodium 146 H Potassium 3.4 L Chloride 103 Carbon Dioxide 31.0 Anion Gap 12 BUN 6 L Creatinine 1.14 H Estim Creat Clear Calc 53.44 Est GFR (MDRD) Af Amer 69 Est GFR (MDRD) Non-Af 57 L BUN/Creatinine Ratio 5.3 L Glucose 121 H Calcium 8.2 L Total Bilirubin 0.40 AST 342 H ALT 257 H Alkaline Phosphatase 100 Total Protein 7.5 Albumin 3.9 Globulin 3.6 Albumin/Globulin Ratio 1.1 Lipase 863 H Urine Color Urine Clarity Urine pH Ur Specific [place] Urine Protein Urine Glucose (UA) Urine Ketones Urine Occult Blood Urine Nitrite Urine Bilirubin Urine Urobilinogen Ur Leukocyte Esterase Urine RBC Urine WBC Ur Squamous Epith Cells Urine Bacteria Urine Mucus Urine Test Urine Opiates Screen Urine Methadone Screen Ur Barbiturates Screen Ur Phencyclidine Scrn Ur Amphetamines Screen U Methamphetamin-MDMA U Benzodiazepines Scrn Urine Cocaine Screen U Cannabinoids Screen Ur Drug Screen Comment Ethyl Alcohol 524.0 H* 10/03/18 10/03/18 10/03/18 19:30 19:30 19:30 WBC RBC Hgb Hct MCV MCH MCHC RDW RDW Differential Plt Count MPV Immature Gran % (Auto) Neut % (Auto) Lymph % (Auto) [place] % (Auto) Eos % (Auto) Baso % (Auto) Absolute Neuts (auto) Absolute Lymphs (auto) Total Counted Differential Comment Sodium Potassium Chloride Carbon Dioxide Anion Gap BUN Creatinine Estim Creat Clear Calc Est GFR (MDRD) Af Amer Est GFR (MDRD) Non-Af BUN/Creatinine Ratio Glucose Calcium Total Bilirubin AST ALT Alkaline Phosphatase Total Protein Albumin Globulin Albumin/Globulin Ratio Lipase Urine Color Yellow Urine Clarity Cloudy Urine pH 7.0 Ur Specific [place] 1.010 Urine Protein 30 H Urine Glucose (UA) Normal Urine Ketones Negative Urine Occult Blood 50 H Urine Nitrite Negative Urine Bilirubin Negative Urine Urobilinogen 4 H Ur Leukocyte Esterase 500 H Urine RBC 0 SEEN Urine WBC 50-100 SEEN Ur Squamous Epith Cells 5-10 SEEN Urine Bacteria 4+ Urine Mucus 0 SEEN Urine Test Negative Urine Opiates Screen NEGATIVE Urine Methadone Screen NEGATIVE Ur Barbiturates Screen NEGATIVE Ur Phencyclidine Scrn NEGATIVE Ur Amphetamines Screen NEGATIVE U Methamphetamin-MDMA NEGATIVE U Benzodiazepines Scrn POSITIVE H Urine Cocaine Screen NEGATIVE U Cannabinoids Screen POSITIVE H Ur Drug Screen Comment Ethyl Alcohol Assessment/Plan All Active Problems Acute cystitis (Acute) Alcohol intoxication (Acute) This is a 38 years old female patient presented to the emergency room because she is concerned of severe alcohol withdrawal, presented with symptoms of hand shakiness, tremors, anxiety, restlessness, persistent nausea and vomiting, found to have blood alcohol level of 524 consistent with acute alcohol intoxication, also found to have findings consistent with acute on chronic alcoholic pancreatitis as well as acute cystitis. #1 acute alcohol intoxication/probable pending severe withdrawal: Patient recently admitted for medical stabilization, discharged and she relapsed almost immediately. Blood alcohol is very high. She is tachycardic, hypertensive. Urine drug screen was positive for benzodiazepines and cannabinoids although patient denied drug use. Plan: Admit to PCU, cardiac monitoring, initiate acute alcohol withdrawal protocol, CIWA protocol, IV Ativan as needed, IV thiamine, IV folic acid, multivitamins, IV fluids with D5 water with KCl, as needed Bentyl, methocarbamol, Zofran, repeat CBC, CMP and lipase tomorrow morning, notify [facility] program, seizure precautions, PT OT evaluation and treatment. #2 acute on chronic alcoholic pancreatitis: Pancreatic lipase is currently elevated, most recently it was 515 and on admission, it is 863. LFT reviewed, no evidence of biliary obstruction. Plan: Clear liquids, IV fluids, IV morphine as needed, IV antiemetics as above, repeat CMP and lipase tomorrow morning. #3 acute cystitis: Start IV Rocephin, urine culture, IV fluids as above. #4 leukopenia/neutropenia/thrombocytopenia: This is likely because of bone marrow suppression secondary to chronic liver disease acute intoxication. Her absolute neutrophil count is 700, she is afebrile. No evidence of bleeding at this time. Hemoglobin is even above normal. Plan: Neutropenic precautions, IV Rocephin for UTI, repeat CBC in the morning, expect WBC and platelet count to improve. #5 alcoholic hepatitis: Chronic. Both AST and ALT are elevated, more than baseline, likely because of alcohol intoxication. Bilirubin and alkaline phosphatase are normal. Plan as above, repeat LFT tomorrow morning. #6 history of alcohol withdrawal seizure: She is not on any medication at this time. Plan for seizure precautions, IV Ativan as needed. #7 DVT prophylaxis: SCDs, no chemical prophylaxis because of thrombocytopenia, ambulate. This note was generated with [employer] Track[employer] dictation software. It may contain incorrect words, spelling, and punctuation that were not noted in checking the note before signing. Code Visit Inpatient E&M: 68377 Init Hosp L3
[2018-10-03 20:30] VITALS: BP 150/105; PULSE 115; RESP 18; TEMP 36.7; O2SAT 98
[2018-10-03 20:35] VITALS: BP 155/112; BMI 23.9; BMI 24.0
[2018-10-03] MEDS: Morphine 2 MG/ML Syringe 1 MG IV (21:06)
[2018-10-03] MEDS: LORazepam 1 MG Tablet 2 MG PO (21:06)
[2018-10-03] MEDS: 0.9% NaCl Peripheral Flush Adult/Peds IV (21:07)
[2018-10-03 21:16] VITALS: PULSE 111
[2018-10-03 23:12] VITALS: PULSE 104
[2018-10-04] VITALS (12 sets, daily range): BP systolic 118–145; BP diastolic 83–99; PULSE 67–114; RESP 16–18; TEMP 36.4–37.1; O2SAT 96–99
[2018-10-04] MEDS: Morphine 2 MG/ML Syringe 1 MG IV ×2 (01:15→06:03)
[2018-10-04] MEDS: LORazepam 1 MG Tablet 2 MG PO ×2 (01:16→06:14)
[2018-10-04] MEDS: 0.9% NaCl Peripheral Flush Adult/Peds IV ×9 (01:16→18:06)
[2018-10-04 05:39] LABS: Prothrombin Time (Protime)PT. 13.4 SECONDS (11.7-14.9)
[2018-10-04 05:47] LABS: Absolute Lymphocyte Count 0.89 X10^3/ul (0.83-4.51); Absolute Neutrophil Count 0.7 X10^3/uL (2.0-7.7); Basophil# 0.06 X10^3/uL; Basophil% 2.8 % (0-1); Eosinophils% 4.6 % (0-5); Hematocrit 39.6 % (37-47); Hemoglobin 13.3 g/dl (12.0-15.0); Lymphocyte # 0.89 X10^3/ul (4.0); Lymphocyte % 40.8 % (19-41); Mean Corp Hgb Conc 33.6 g/gl (32-36); Mean Corpuscular Hgb 32.8 pg (27.0-32.0); Mean Corpuscular Volume 97.5 fL (81-99); Mean Platelet Vol. 8.7 fl (6.2-12.0); Monocyte# 0.47 X10^3/uL; Monocyte% 21.6 % (0-10); Neutrophil # 0.65 X10^3/uL (2.7-7.7); Neutrophil % 29.7 % (47-70); Platelet Count 103 K/mm3 (150-450); RBC Distribution Width CV 14.6 % (11.6-14.6); RBC Distribution Width SD 50.2 fl (35.1-43.9); Red Blood Count 4.06 M/mm3 (4.2-5.4); White Blood Count 2.2 K/mm3 (4.4-11.0)
[2018-10-04 05:48] LABS: Differential Indicated SCAN CRITERIA MET; POSITIVE COUNT NO; POSITIVE DIFFERENTIAL YES; POSITIVE MORPHOLOGY NO
[2018-10-04 05:52] LABS: ALB/GLOB Ratio 1.1 RATIO (0.9-2.4); AST(SGOT) 205 U/L (15-37); Alanine Aminotransfer ALT/SGPT 196 U/L (13-56); Albumin, Serum 3.4 g/dL (3.2-5.0); Alkaline Phosphatase 76 U/L (45-117); Anion Gap 12 (5-15); BUN 5 mg/dL (7-18); BUN/Creat Ratio 6.5 RATIO (10-20); Calcium,Total 8.2 mg/dL (8.5-10.1); Chloride 97 mmol/L (98-107); Creatinine, Serum 0.77 mg/dL (0.55-1.02); EST Glomerular Filtration Rate 90 mL/min (>60); Est Glom Filt Rate - Afr Amer 109 mL/min (>60); Estimated Creatinine Clearance 79.12 ml/min; Glucose 97 mg/dL (74-106); Lipase 525 U/L (73-393); Potassium 3.3 mmol/L (3.5-5.1); Protein, Total 6.4 g/dL (6.4-8.2); Sodium Level 139 mmol/L (136-145)
[2018-10-04] MEDS: proMETHazine 25 MG/ML Syringe 6.25 MG IV (06:15)
[2018-10-04 07:34] LABS: Phosphorus 3.9 mg/dL (2.5-4.9)
[2018-10-04 07:35] LABS: Pregnancy, Serum, hCG Quali. NEGATIVE Negative (0-9 Nonpreg)
[2018-10-04] MEDS: Folic Acid 1 MG Tablet PO (07:57)
[2018-10-04] MEDS: LORazepam 2 MG/ML Syringe IV ×7 (07:57→22:40)
[2018-10-04] MEDS: Ketorolac 30 MG/ML Syringe IV ×3 (07:58→22:02)
[2018-10-04] MEDS: chlordiazePOXIDE 25 MG Capsule PO ×3 (07:58→18:39)
[2018-10-04] MEDS: 0.9% Normal Saline 1,000 ML 150 ML IV ×2 (07:58→20:34)
[2018-10-04] MEDS: Multivitamins,Therapeutic Tablet 1 TABLET PO (07:58)
[2018-10-04] MEDS: Thiamine Hydrochloride 100 MG Tablet PO (09:14)
[2018-10-04] MEDS: QUEtiapine 25 MG Tablet PO ×2 (09:14→22:02)
[2018-10-04] MEDS: Ceftriaxone 1 GM/50 ML BAG IV (09:58)
[2018-10-04] MEDS: Magnesium Sulfate 4gm/100mL 4 GM/100 ML IV.SOLN. IV (11:16)
--- NOTE | 2018-10-04 12:47 | PCM.PROGNOTE ---
Patient Problems: Active and Suspected Problems Acute cystitis (Acute) Alcohol intoxication (Acute) Subjective: Pt was very groggy this AM. She has mild aching in her midepigastric region. She insists she had no issues with clears this AM and would very much like something more to eat. Will try full liquids. She is tremulous. She has a hx of withdrawal seizure. She denies hallucinations. She has no nausea or vomiting. She does have dysuria. - Physical Exam General: Alert, Oriented x3, Cooperative HEENT: Atraumatic, PERRLA, EOMI, Normocephalic Neck: Supple, No JVD, Negative Carotid Bruits Lungs: Clear to auscultation, Normal air movement Cardiovascular: Regular rate, No murmurs Abdomen: Bowel Sounds Present, Soft, Non Tender, Tender - diffuse, mild Extremities: No edema, Capillary Refill Less than 3 Seconds Skin: No rashes, No breakdown Musculoskeletal: No Tenderness to Palpation of Joints or Extremities Neurological: Cranial nerves II-XII grossly intact, - - upper extremity tremor Psych/Mental Status: Normal Affect, Appropriate Vital Signs Temp Pulse Resp BP Pulse Ox 98.7 F 69 18 134/90 H 97 10/04/18 12:09 10/04/18 12:09 10/04/18 12:09 10/04/18 12:09 10/04/18 12:09 Oxygen Delivery Method Room Air Weight: 130 lb 15.273 oz Body Mass Index (BMI) 23.9 Intake and Output for Last 24 Hours 10/02/18 10/03/18 10/04/18 23:59 23:59 23:59 Intake Total 3056 / 3056 Balance 3056 / 3056 Laboratory Tests Past 24 Hrs 10/03/18 10/03/18 10/03/18 18:18 18:18 18:18 WBC 2.6 L RBC 4.80 Hgb 15.9 H Hct 47.7 H MCV 99.4 H MCH 33.1 H MCHC 33.3 RDW 15.4 H RDW Differential 56.0 H Plt Count 114 L MPV 8.9 Immature Gran % (Auto) 0.400 Neut % (Auto) 28.2 L Lymph % (Auto) 49.8 H [place] % (Auto) 17.0 H Eos % (Auto) 2.7 Baso % (Auto) 1.9 H Absolute Neuts (auto) 0.7 L Absolute Lymphs (auto) 1.29 Total Counted Not Reportable Differential Comment SCANNED PT INR Sodium 146 H Potassium 3.4 L Chloride 103 Carbon Dioxide 31.0 Anion Gap 12 BUN 6 L Creatinine 1.14 H Estim Creat Clear Calc 53.44 Est GFR (MDRD) Af Amer 69 Est GFR (MDRD) Non-Af 57 L BUN/Creatinine Ratio 5.3 L Glucose 121 H Calcium 8.2 L Phosphorus Magnesium Total Bilirubin 0.40 AST 342 H ALT 257 H Alkaline Phosphatase 100 Total Protein 7.5 Albumin 3.9 Globulin 3.6 Albumin/Globulin Ratio 1.1 Lipase 863 H Serum , Qual Urine Color Urine Clarity Urine pH Ur Specific [place] Urine Protein Urine Glucose (UA) Urine Ketones Urine Occult Blood Urine Nitrite Urine Bilirubin Urine Urobilinogen Ur Leukocyte Esterase Urine RBC Urine WBC Ur Squamous Epith Cells Urine Bacteria Urine Mucus Urine Test Urine Opiates Screen Urine Methadone Screen Ur Barbiturates Screen Ur Phencyclidine Scrn Ur Amphetamines Screen U Methamphetamin-MDMA U Benzodiazepines Scrn Urine Cocaine Screen U Cannabinoids Screen Ur Drug Screen Comment Ethyl Alcohol 524.0 H* 10/03/18 10/03/18 10/03/18 19:30 19:30 19:30 WBC RBC Hgb Hct MCV MCH MCHC RDW RDW Differential Plt Count MPV Immature Gran % (Auto) Neut % (Auto) Lymph % (Auto) [place] % (Auto) Eos % (Auto) Baso % (Auto) Absolute Neuts (auto) Absolute Lymphs (auto) Total Counted Differential Comment PT INR Sodium Potassium Chloride Carbon Dioxide Anion Gap BUN Creatinine Estim Creat Clear Calc Est GFR (MDRD) Af Amer Est GFR (MDRD) Non-Af BUN/Creatinine Ratio Glucose Calcium Phosphorus Magnesium Total Bilirubin AST ALT Alkaline Phosphatase Total Protein Albumin Globulin Albumin/Globulin Ratio Lipase Serum , Qual Urine Color Yellow Urine Clarity Cloudy Urine pH 7.0 Ur Specific [place] 1.010 Urine Protein 30 H Urine Glucose (UA) Normal Urine Ketones Negative Urine Occult Blood 50 H Urine Nitrite Negative Urine Bilirubin Negative Urine Urobilinogen 4 H Ur Leukocyte Esterase 500 H Urine RBC 0 SEEN Urine WBC 50-100 SEEN Ur Squamous Epith Cells 5-10 SEEN Urine Bacteria 4+ Urine Mucus 0 SEEN Urine Test Negative Urine Opiates Screen NEGATIVE Urine Methadone Screen NEGATIVE Ur Barbiturates Screen NEGATIVE Ur Phencyclidine Scrn NEGATIVE Ur Amphetamines Screen NEGATIVE U Methamphetamin-MDMA NEGATIVE U Benzodiazepines Scrn POSITIVE H Urine Cocaine Screen NEGATIVE U Cannabinoids Screen POSITIVE H Ur Drug Screen Comment Ethyl Alcohol 10/04/18 10/04/18 10/04/18 05:15 05:15 05:15 WBC 2.2 L RBC 4.06 L Hgb 13.3 Hct 39.6 MCV 97.5 MCH 32.8 H MCHC 33.6 RDW 14.6 RDW Differential 50.2 H Plt Count 103 L MPV 8.7 Immature Gran % (Auto) 0.500 Neut % (Auto) 29.7 L Lymph % (Auto) 40.8 [place] % (Auto) 21.6 H Eos % (Auto) 4.6 Baso % (Auto) 2.8 H Absolute Neuts (auto) 0.7 L Absolute Lymphs (auto) 0.89 Total Counted Not Reportable Differential Comment PT 13.4 INR 1.0 Sodium 139 Potassium 3.3 L Chloride 97 L Carbon Dioxide 30.0 Anion Gap 12 BUN 5 L Creatinine 0.77 Estim Creat Clear Calc 79.12 Est GFR (MDRD) Af Amer 109 Est GFR (MDRD) Non-Af 90 BUN/Creatinine Ratio 6.5 L Glucose 97 Calcium 8.2 L Phosphorus Magnesium Total Bilirubin 0.40 AST 205 H ALT 196 H Alkaline Phosphatase 76 Total Protein 6.4 Albumin 3.4 Globulin 3.0 Albumin/Globulin Ratio 1.1 Lipase 525 H Serum , Qual Urine Color Urine Clarity Urine pH Ur Specific [place] Urine Protein Urine Glucose (UA) Urine Ketones Urine Occult Blood Urine Nitrite Urine Bilirubin Urine Urobilinogen Ur Leukocyte Esterase Urine RBC Urine WBC Ur Squamous Epith Cells Urine Bacteria Urine Mucus Urine Test Urine Opiates Screen Urine Methadone Screen Ur Barbiturates Screen Ur Phencyclidine Scrn Ur Amphetamines Screen U Methamphetamin-MDMA U Benzodiazepines Scrn Urine Cocaine Screen U Cannabinoids Screen Ur Drug Screen Comment Ethyl Alcohol 10/04/18 10/04/18 05:15 05:15 WBC RBC Hgb Hct MCV MCH MCHC RDW RDW Differential Plt Count MPV Immature Gran % (Auto) Neut % (Auto) Lymph % (Auto) [place] % (Auto) Eos % (Auto) Baso % (Auto) Absolute Neuts (auto) Absolute Lymphs (auto) Total Counted Differential Comment PT INR Sodium Potassium Chloride Carbon Dioxide Anion Gap BUN Creatinine Estim Creat Clear Calc Est GFR (MDRD) Af Amer Est GFR (MDRD) Non-Af BUN/Creatinine Ratio Glucose Calcium Phosphorus 3.9 Magnesium 1.0 L Total Bilirubin AST ALT Alkaline Phosphatase Total Protein Albumin Globulin Albumin/Globulin Ratio Lipase Serum , Qual NEGATIVE Urine Color Urine Clarity Urine pH Ur Specific [place] Urine Protein Urine Glucose (UA) Urine Ketones Urine Occult Blood Urine Nitrite Urine Bilirubin Urine Urobilinogen Ur Leukocyte Esterase Urine RBC Urine WBC Ur Squamous Epith Cells Urine Bacteria Urine Mucus Urine Test Urine Opiates Screen Urine Methadone Screen Ur Barbiturates Screen Ur Phencyclidine Scrn Ur Amphetamines Screen U Methamphetamin-MDMA U Benzodiazepines Scrn Urine Cocaine Screen U Cannabinoids Screen Ur Drug Screen Comment Ethyl Alcohol Medical Necessity - Tobacco Use Smoking Status: Never smoker Assessment/Plan All Active Problems Acute cystitis (Acute) Alcohol intoxication (Acute) 1. Acute pancreatitis 2/2 etoh abuse - continue IV fluids, cautiously advance diet. Pain is minimal. Protonix BID. 2. Alcoholism with acute withdrawal - hx seizures with withdrawal. Drinks about [id number] bottle liquor daily. Tremulous. Continue librium, ativan, folate, thiamine. 3. Hypokalemia / Hypomagnesemia - replete, recheck 4. Acute cystitis - symptomatic. + UA. Rocephin. 5. RAJESH - resolved 6. Alcoholic hepatitis 7. Leukopenia, neutropenia, thrombocytopenia - trend. DVT ppx:SCDs DC planning: pending ability to advance diet and stabilizing through acute withdrawal This patient was seen by Rodrigo Vargas PA-C under the supervision of Doctor Boaz.
--- NOTE | 2018-10-04 12:57 | NEWVISION ---
I saw patient as requested by consult. Patient was here in August 2018. Patient admitted she did not go to outpatient therapy as scheduled. Patient is interested in completing medical stabilization with [facility]. I completed her admission packet and entered her into our service. I will be following to set up discharge plans and services for patient.
[2018-10-04] MEDS: Morphine 2 MG/ML Syringe IV ×2 (16:18→22:08)
--- NOTE | 2018-10-04 18:18 | NURSING ---
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
--- NOTE | 2018-10-04 19:00 | NURSING ---
Guy, patients friend, called to update on transfer to [facility] floor per patient request.
[2018-10-04] MEDS: traZODone 50 MG Tablet PO (22:02)
[2018-10-04] MEDS: Dicyclomine 10 MG Capsule 20 MG PO (22:02)
[2018-10-05] VITALS (9 sets, daily range): BP systolic 105–145; BP diastolic 74–106; PULSE 64–103; RESP 14–18; TEMP 36.4–36.6; O2SAT 97–98
[2018-10-05] MEDS: chlordiazePOXIDE 25 MG Capsule PO ×3 (01:14→17:27)
[2018-10-05] MEDS: LORazepam 2 MG/ML Syringe IV ×5 (01:59→16:03)
[2018-10-05] MEDS: Acetaminophen 500 MG Tablet PO ×4 (02:02→21:40)
[2018-10-05] MEDS: proMETHazine 25 MG/ML Syringe 6.25 MG IV (02:32)
[2018-10-05] MEDS: 0.9% Normal Saline 1,000 ML 150 ML IV ×3 (04:12→21:46)
[2018-10-05] MEDS: Methocarbamol 750 MG Tablet PO ×3 (05:12→23:40)
[2018-10-05] MEDS: hydrOXYzine PAM 25 MG Capsule 50 MG PO ×2 (05:12→22:52)
[2018-10-05 06:21] LABS: Absolute Lymphocyte Count 0.14 X10^3/ul (0.83-4.51); Absolute Neutrophil Count 2.2 X10^3/uL (2.0-7.7); Basophil# 0.02 X10^3/uL; Basophil% 0.8 % (0-1); Eosinophil# 0.08 X10^3/uL; Eosinophils% 3.2 % (0-5); Hematocrit 40.4 % (37-47); Lymphocyte # 0.14 X10^3/ul (4.0); Lymphocyte % 5.6 % (19-41); Mean Corp Hgb Conc 32.2 g/gl (32-36); Mean Corpuscular Hgb 32.4 pg (27.0-32.0); Mean Corpuscular Volume 100.7 fL (81-99); Mean Platelet Vol. 10.2 fl (6.2-12.0); Monocyte# 0.01 X10^3/uL; Monocyte% 0.4 % (0-10); Neutrophil # 2.24 X10^3/uL (2.7-7.7); Neutrophil % 89.6 % (47-70); Platelet Count 65 K/mm3 (150-450); RBC Distribution Width CV 15.5 % (11.6-14.6); RBC Distribution Width SD 57.2 fl (35.1-43.9); Red Blood Count 4.01 M/mm3 (4.2-5.4); White Blood Count 2.5 K/mm3 (4.4-11.0)
[2018-10-05 06:25] LABS: Differential Indicated SCAN CRITERIA MET; POSITIVE COUNT NO; POSITIVE DIFFERENTIAL YES; POSITIVE MORPHOLOGY NO
[2018-10-05 06:40] LABS: ALB/GLOB Ratio 1.1 RATIO (0.9-2.4); AST(SGOT) 417 U/L (15-37); Alanine Aminotransfer ALT/SGPT 218 U/L (13-56); Albumin, Serum 2.9 g/dL (3.2-5.0); Alkaline Phosphatase 81 U/L (45-117); Anion Gap 12 (5-15); BUN 5 mg/dL (7-18); BUN/Creat Ratio 6.5 RATIO (10-20); Calcium,Total 8.3 mg/dL (8.5-10.1); Chloride 108 mmol/L (98-107); Creatinine, Serum 0.77 mg/dL (0.55-1.02); EST Glomerular Filtration Rate 90 mL/min (>60); Est Glom Filt Rate - Afr Amer 108 mL/min (>60); Estimated Creatinine Clearance 79.12 ml/min; Globulin 2.7 g/dL (2.2-4.2); Glucose 127 mg/dL (74-106); Lipase 477 U/L (73-393); Magnesium 1.5 mg/dL (1.6-2.6); Protein, Total 5.6 g/dL (6.4-8.2); Sodium Level 140 mmol/L (136-145)
[2018-10-05] MEDS: Ketorolac 30 MG/ML Syringe IV ×2 (06:47→13:55)
--- NOTE | 2018-10-05 06:58 | PN_ITS ---
Patient Problems: Active and Suspected Problems Acute cystitis (Acute) Alcohol intoxication (Acute) Subjective: Patient improved since day prior, transition to medical surgical floor, up this morning in the bathroom, moving by herself which is a marked improvement from day prior as she could barely balance standing up, more alert, answering questions appropriately, not hallucinating and no longer markedly tremulous. She states that abdominal discomfort is improved and is eager for transition of diet. Patient denies fevers, chills, nausea, emesis, abdominal pain, chest pain or dyspnea. Objective: Physical Examination: General: awake, alert, oriented x 3 and cooperative, usually walking around in the bathroom, no acute distress, since notable improvement since day prior, answering questions appropriately, no longer markedly tremulous. Skin: normal color, turgor, no icterus, cyanosis. HEENT: AT/NC, EOMI, PERRLA, improved MMM. Lungs: CTA bilaterally, moderate effort, mild decrease BL bases, no rales, ronchi or wheezing. Heart: Regular rate and rhythm; no gallop, rub audible. Abdomen: soft, NTTP, suprapubic tenderness, ND, normal BS. Extremities: no cyanosis, clubbing, or edema. Neurological: patient awake, alert, oriented x 3 no longer hallucinating; tremors markedly improved from day prior; cognitive function markedly improved, suspect near baseline intact now; pupils equally reactive to light and accomodation; cranial nerves II-XII grossly normal, moving all 4 extremities, no focal deficits, strength, mildly to moderately decreased Psychiatric: affect appears normal today, answering appropriately, no longer sedate or lethargic, no acute evidence of depressive or anxiety feelings. Vitals/I&O's: Vital Signs Temp Pulse Resp BP Pulse Ox 97.6 F L 91 18 126/84 H 97 10/05/18 02:38 10/05/18 02:38 10/05/18 02:38 10/05/18 02:38 10/05/18 02:38 Oxygen Delivery Method Room Air Weight: 130 lb 15.273 oz Body Mass Index (BMI) 23.9 Intake and Output for Last 24 Hours 10/03/18 10/04/18 10/05/18 23:59 23:59 23:59 Intake Total 3056 / 3056 2784 / 2784 Balance 3056 / 3056 2784 / 2784 Laboratory Results 10/04/18 05:15: Total Counted Not Reportable 10/04/18 05:15: Phosphorus 3.9, Magnesium 1.0 L 10/04/18 05:15: Serum , Qual NEGATIVE 10/05/18 05:50: WBC 2.5 L, RBC 4.01 L, Hgb 13.0, Hct 40.4, MCV 100.7 H, MCH 32.4 H, MCHC 32.2, RDW 15.5 H, RDW Differential 57.2 H, Plt Count 65 L, MPV 10.2, Immature Gran % (Auto) 0.400, Neut % (Auto) 89.6 H, Lymph % (Auto) 5.6 L, [place] % (Auto) 0.4, Eos % (Auto) 3.2, Baso % (Auto) 0.8, Absolute Neuts (auto) 2.2, Absolute Lymphs (auto) 0.14 L, Total Counted Pending 10/05/18 05:50: Sodium 140, Potassium 4.0, Chloride 108 H, Carbon Dioxide 20.0 L , Anion Gap 12, BUN 5 L, Creatinine 0.77, Estim Creat Clear Calc 79.12, Est GFR (MDRD) Af Amer 108, Est GFR (MDRD) Non-Af 90, BUN/Creatinine Ratio 6.5 L, Glucose 127 H, Calcium 8.3 L, Magnesium 1.5 L, Total Bilirubin 0.70, AST 417 H, ALT 218 H, Alkaline Phosphatase 81, Total Protein 5.6 L, Albumin 2.9 L, Globulin 2.7, Albumin/Globulin Ratio 1.1, Lipase 477 H Current Medications Acetaminophen (Tylenol) 500 mg PO Q4H PRN PRN PRN Reason: Temp > 100.4 F Last Admin: 10/05/18 02:02 Dose: 500 mg Al Hydroxide/Mg Hydroxide (Mylanta Ii) 30 ml PO Q6H PRN PRN PRN Reason: dyspesia Bisacodyl (Dulcolax) 10 mg RECTAL DAILY PRN PRN Reason: Constipation Chlordiazepoxide (Librium) 50 mg PO Q8H [facility]; Taper Stop: 10/07/18 09:14 Last Admin: 10/05/18 01:14 Dose: 50 mg Dicyclomine HCl (Bentyl) 20 mg PO Q6H PRN PRN PRN Reason: abdominal discomfort Last Admin: 10/04/18 22:02 Dose: 20 mg Folic Acid (Folic Acid) [facility] Last Admin: 10/04/18 07:57 Dose: 1 mg Hydroxyzine Pamoate (Vistaril Pamoate Capsule) 50 mg PO Q6H PRN PRN PRN Reason: Mild Anxiety (score 1/3) Last Admin: 10/05/18 05:12 Dose: 50 mg Ceftriaxone Sodium (Rocephin) 1 gm in 50 mls @ 100 mls/hr IV Q24 [facility] Last Admin: 10/04/18 09:58 Dose: 100 mls/hr Sodium Chloride () 1,000 mls @ 150 mls/hr IV .Q6H40M [facility] Last Admin: 10/05/18 04:12 Dose: 150 mls/hr Magnesium Sulfate () 4 gm in 100 mls @ 25 mls/hr IV X1 [facility] Stop: 10/05/18 11:29 Ketorolac Tromethamine (Toradol) 30 mg IV Q8 [facility] Stop: 10/05/18 14:01 Last Admin: 10/05/18 06:47 Dose: 30 mg Loperamide HCl (Imodium) 2 - 4 mg PO UD PRN PRN Reason: LOOSE STOOLS Lorazepam (Ativan) 2 mg PO Q2H PRN PRN; Protocol PRN Reason: CIWA score > 8 but <15 Last Admin: 10/04/18 06:14 Dose: 2 mg Lorazepam (Ativan) 2 mg IV Q2H PRN PRN; Protocol PRN Reason: CIWA score > 8 but <15 Last Admin: 10/05/18 06:47 Dose: 2 mg Lorazepam (Ativan) 2 mg IV UD PRN; Protocol PRN Reason: CIWA score >/=15. Magnesium Hydroxide (Milk Of Magnesia) 30 ml PO DAILY PRN PRN PRN Reason: Constipation Methocarbamol (Methocarbamol) 750 mg PO Q6H PRN PRN PRN Reason: Muscle Aches Last Admin: 10/05/18 05:12 Dose: 750 mg Multivitamins (Multivitamin) [facility] Last Admin: 10/04/18 07:58 Dose: 1 tablet Ondansetron HCl (Zofran) 4 mg IV Q6H PRN PRN PRN Reason: NAUSEA/VOMITING Ondansetron HCl (Zofran Odt) 4 mg PO Q6H PRN PRN PRN Reason: NAUSEA Pantoprazole Sodium (Protonix) 40 mg PO BID [facility] Promethazine HCl (Phenergan) 6.25 mg IV Q6H PRN PRN PRN Reason: NAUSEA/VOMITING Last Admin: 10/05/18 02:32 Dose: 6.25 mg Quetiapine Fumarate (Seroquel) 25 mg PO Q6H PRN PRN PRN Reason: agitation, anxiety Last Admin: 10/04/18 22:02 Dose: 25 mg Senna (Senokot) 1 tablet PO QHS PRN PRN Reason: Constipation Sodium Chloride () 5 - 15 ml IV UD PRN PRN Reason: SALINE FLUSH Last Admin: 10/04/18 18:06 Dose: 10 ml Thiamine HCl (Vitamin B1) 100 mg [facility] Last Admin: 10/04/18 09:14 Dose: 100 mg Trazodone HCl (Desyrel) 50 mg PO QHS [facility] Last Admin: 10/04/18 22:02 Dose: 50 mg Medical Necessity - Tobacco Use Smoking Status: Never smoker Assessment/Plan All Active Problems Acute cystitis (Acute) Alcohol intoxication (Acute) The patient is a 38 y/o F w/ PMHx: EtOH Abuse with History of DTs, History Prior Alcoholic Pancreatitis who presents to the [facility] ED on 10/03/18 w/ history of recent heavy alcohol intoxication with now attempts at sobriety with onset of tremors, restlessness, agitation with persistent nausea vomiting and epigastric discomfort in addition to recently noted dysuria and foul-smelling urine. (1) Acute pancreatitis w/ abdominal pain, N/V: Admission Lipase 863. Admitted to PCU secondary to history of DTs, maintained on aggressive IVFs, NPO initially with transition to clears-->fulls, will now transition to cardiac diet given improvement, transition IV PPI to oral regimen, admission lipase 863 w/ AST/ALT 342/257-->10/05/18 lipase 477, AST/ALT 417/218, chronically elevated LFTs. Appears resolved. Sobriety encouraged. [facility] following to assist w/ discharge planned and as noted Acute EtOH withdrawal treatment ongoing. GB US and AM lipid panel requested given elevated LFTs above prior noted levels. (2) Acute EtOH Withdrawal: Initially intoxicated, 10/04/18 in active withdrawal, initiated and continued on [facility] service protocol with taper course of librium, as needed Seroquel, Catapres, Bentyl, Vistaril, IV fluids, IV antiemetics, Tylenol as needed for pain. Once patient clinically improved and completion of taper nearing [facility] continued assistance for transition to next level of rehabilitation care. Mag, phos obtained and supplemented as noted. Maintain on CIWA protocol. Maintain on thiamine, folic acid, MVI. (3) Acute E. Coli Urinary Tract Infection: UA upon ED evaluation remarkable, admission CBC not marked, continue IVFs, monitor I/Os, continue IV Rocephin w/ transition as able pending sensitivities and speciation. (4) Polysubstance Abuse: UDS BZD, Cannabis, EtOH abuse 524, [facility] following, continue treatment as noted #2. (5) Hypokalemia: Admission K+ 3.3, supplementation given, repeat level 10/05/18 K 4.0. (6) Hypomagnesium: Magnesium level 1, supplementation administered, repeat level 1.5, administer additional magnesium and repeat level in AM. (7) Thrombocytopenia, chronic: Admission platelet 114, repeat 65, suspected secondary to EtOH abuse, continue to monitor. (8) Elevated LFTs, Acute on Chronic: Admission AST/ALT 342/257-->205/196-->417/218, continue to trend, likely secondary to acute presentation #1, #2, to be cautious given presentation #1, GB US and AM lipid panel requested. (9) DVT Prophylaxis: TORRIE, defer chemoprophylaxis given thrombocytopenia. Code Visit Inpatient E&M: 04793 Subs Hosp L2
[2018-10-05] MEDS: Dicyclomine 10 MG Capsule 20 MG PO ×3 (10:12→23:40)
[2018-10-05] MEDS: Magnesium Sulfate 4gm/100mL 4 GM/100 ML IV.SOLN. IV (10:12)
[2018-10-05] MEDS: Folic Acid 1 MG Tablet PO (10:26)
[2018-10-05] MEDS: Multivitamins,Therapeutic Tablet 1 TABLET PO (10:27)
[2018-10-05] MEDS: Thiamine Hydrochloride 100 MG Tablet PO (10:27)
[2018-10-05] MEDS: Pantoprazole Sodium 40 MG Tablet PO ×2 (10:27→21:41)
--- NOTE | 2018-10-05 13:57 | US_ITS ---
STUDY: ABDOMINAL ULTRASOUND - RIGHT UPPER QUADRANT REASON FOR VISIT: Female, 38 years old. Elevated LFTs TECHNIQUE: Ultrasound evaluation of the right upper quadrant was performed with real-time and static godoy-scale imaging. TECHNICAL QUALITY: Adequate. COMPARISON: None. FINDINGS: Liver: The liver measures 17.7 cm. There is increased echogenicity consistent with fatty infiltration. The bile ducts are within normal limits. There is hepatic color flow. The direction of portal flow is hepatopetal. There is no demonstrated mass lesion. Gallbladder: Normal distended gallbladder. The gallbladder wall measures 2.7 mm. There is a negative sonographic Buckner's sign. There is no pericholecystic fluid. There are no gallstones. Common Bile Duct (C.B.D.): The common bile duct measures 3.7 mm. Pancreas: Normal size of the head, body and tail of the pancreas. There is normal echogenicity of the pancreas. There is no demonstrated pancreatic mass or cyst. Right Kidney: Normal size of the right kidney. The right kidney measures 10.6 x 5.8 x 5.7 cm. Normal renal cortex. The right cortex measures 1.6 cm. There is no demonstrated renal mass or cyst. There is no right hydronephrosis. US/Gallbladder IMPRESSION: Increased hepatic echogenicity suggestive of steatosis. The study is otherwise unremarkable. Electronically Signed: Kings Rodas MD at 16:04 EST , Service support ,
[2018-10-05] MEDS: Ceftriaxone 1 GM/50 ML BAG IV (14:16)
[2018-10-05] MEDS: QUEtiapine 25 MG Tablet PO ×2 (14:24→20:30)
--- NOTE | 2018-10-05 14:29 | NEWVISION ---
Patient was agreeable to outpatient counseling. Patient to be seen by counselor for depression, anxiety, trauma, and substance abuse at [facility] on 10/12/2018.Patient was provided inpatient resources as well should patient want to look into that as well. Patient should be transported home by a friend.
--- NOTE | 2018-10-05 15:02 | CHAPLAIN ---
Type of Pastoral Visit ___ Initial Visit ___ Follow-up Visit ___ On-call Visit ___ General Patient Visit ___ Spiritual Assessment ___ Family Conference ___ Bereavement ___ Rapid Response ___ Code Blue _x__ Other (describe below) Pastoral Care Referral From _x__ Patient ___ Family ___ Nurse ___ Physician ___ Food Service Kitchen Supervisor ___ Blueprint Maker ___ Other (describe below) Sacrament/Intervention ___ Active listening ___ Anointing ___ Advent ___ Bereavement ___ Communion ___ Naya exploration ___ ___ Life review ___ Prayer ___ Reconciliation ___ Sacrament of Sick ___ Supportive presence ___ Wedding ___ Other (describe below) Pastoral Comments patient was sleeping soundly and did not awaken upon entry to her room; left a calling card
[2018-10-05] MEDS: 0.9% NaCl Peripheral Flush Adult/Peds IV ×2 (16:04→19:11)
[2018-10-05] MEDS: LORazepam 1 MG Tablet 2 MG PO ×3 (19:02→23:40)
[2018-10-05] MEDS: traZODone 50 MG Tablet PO (21:41)
[2018-10-06] VITALS (8 sets, daily range): BP systolic 126–145; BP diastolic 80–110; PULSE 76–98; RESP 16–18; TEMP 36.4–36.8; O2SAT 96–100
[2018-10-06] MEDS: chlordiazePOXIDE 25 MG Capsule PO ×3 (01:27→21:21)
[2018-10-06] MEDS: LORazepam 1 MG Tablet 2 MG PO ×5 (04:25→23:11)
[2018-10-06] MEDS: 0.9% Normal Saline 1,000 ML 150 ML IV (05:47)
[2018-10-06] MEDS: Methocarbamol 750 MG Tablet PO ×3 (06:22→23:45)
[2018-10-06] MEDS: QUEtiapine 25 MG Tablet PO ×2 (06:22→20:41)
[2018-10-06] MEDS: proMETHazine 25 MG/ML Syringe 6.25 MG IV (06:22)
--- NOTE | 2018-10-06 07:04 | PCM.PN.HOSP ---
Patient Problems: Active and Suspected Problems Acute cystitis (Acute) Alcohol intoxication (Acute) Subjective: Patient status continues to improve daily. Patient denies any further abdominal discomfort but states she still mildly sore but tolerating diet without issue and requesting IV fluid discontinuation. Patient remains amenable to continued Librium taper for alcohol withdrawal and states she is eager to continue this status. Discussed patient and liver enzymes still mildly elevated with unremarkable liver and gallbladder ultrasound and patient amenable to hepatitis panel evaluation. In addition following discussions amenable to HIV testing as well. Patient denies fevers, chills, nausea, emesis, worsened or more severe abdominal pain, chest pain or dyspnea. Objective: Physical Examination: General: awake, alert, oriented x 3 and cooperative, laying in bed initially, awakens with ease, notes feeling improved and tolerating diet. Skin: normal color, turgor, no icterus, cyanosis. HEENT: AT/NC, EOMI, PERRLA, improved MMM. Lungs: CTA bilaterally, moderate effort, mild decrease BL bases, no rales, ronchi or wheezing. Heart: Regular rate and rhythm; no gallop, rub audible. Abdomen: soft, NTTP, suprapubic tenderness, ND, normal BS. Extremities: no cyanosis, clubbing, or edema. Neurological: patient awake, alert, oriented x 3 no longer hallucinating; tremors currently resolved; cognitive function markedly improved, baseline intact; pupils equally reactive to light and accomodation; cranial nerves II-XII grossly normal, moving all 4 extremities, no focal deficits, strength improving, mildly decreased. Psychiatric: affect appears normal, no acute evidence of depressive or anxiety feelings. Vitals/I&O's: Vital Signs Temp Pulse Resp BP Pulse Ox 98 F 76 16 130/80 H 98 10/06/18 06:00 10/06/18 06:00 10/06/18 06:00 10/06/18 06:00 10/06/18 06:00 Oxygen Delivery Method Room Air Weight: 130 lb 15.273 oz Body Mass Index (BMI) 23.9 Intake and Output for Last 24 Hours 10/04/18 10/05/18 10/06/18 23:59 23:59 23:59 Intake Total 3056 / 3056 4913 / 4913 2722 / 2722 Balance 3056 / 3056 4913 / 4913 2722 / 2722 Microbiology Past 72 Hours 10/03/18 19:30 Urine, Clean Catch Urine Culture - Preliminary Presumptive E. coli Current Medications Acetaminophen (Tylenol) 500 mg PO Q4H PRN PRN PRN Reason: Temp > 100.4 F Last Admin: 10/05/18 21:40 Dose: 500 mg Al Hydroxide/Mg Hydroxide (Mylanta Ii) 30 ml PO Q6H PRN PRN PRN Reason: dyspesia Bisacodyl (Dulcolax) 10 mg RECTAL DAILY PRN PRN Reason: Constipation Chlordiazepoxide (Librium) 50 mg PO Q8H [facility]; Taper Stop: 10/07/18 09:14 Last Admin: 10/06/18 01:27 Dose: 50 mg Dicyclomine HCl (Bentyl) 20 mg PO Q6H PRN PRN PRN Reason: abdominal discomfort Last Admin: 10/05/18 23:40 Dose: 20 mg Folic Acid (Folic Acid) 1 mg PO DAILYCM [facility] Last Admin: 10/05/18 10:26 Dose: 1 mg Hydroxyzine Pamoate (Vistaril Pamoate Capsule) 50 mg PO Q6H PRN PRN PRN Reason: Mild Anxiety (score 1/3) Last Admin: 10/05/18 22:52 Dose: 50 mg Ceftriaxone Sodium (Rocephin) 1 gm in 50 mls @ 100 mls/hr IV Q24 [facility] Last Admin: 10/05/18 14:16 Dose: 100 mls/hr Sodium Chloride () 1,000 mls @ 150 mls/hr IV .Q6H40M [facility] Last Admin: 10/06/18 05:47 Dose: 150 mls/hr Loperamide HCl (Imodium) 2 - 4 mg PO UD PRN PRN Reason: LOOSE STOOLS Lorazepam (Ativan) 2 mg PO Q2H PRN PRN; Protocol PRN Reason: CIWA score > 8 but <15 Last Admin: 10/06/18 04:25 Dose: 2 mg Lorazepam (Ativan) 2 mg IV Q2H PRN PRN; Protocol PRN Reason: CIWA score > 8 but <15 Last Admin: 10/05/18 10:12 Dose: 2 mg Lorazepam (Ativan) 2 mg IV UD PRN; Protocol PRN Reason: CIWA score >/=15. Last Admin: 10/05/18 16:03 Dose: 2 mg Magnesium Hydroxide (Milk Of Magnesia) 30 ml PO DAILY PRN PRN PRN Reason: Constipation Methocarbamol (Methocarbamol) 750 mg PO Q6H PRN PRN PRN Reason: Muscle Aches Last Admin: 10/06/18 06:22 Dose: 750 mg [facility]it[facility] ([facility]) [facility] Last Admin: 10/05/18 10:27 Dose: 1 tablet Ondansetron HCl (Zofran) 4 mg IV Q6H PRN PRN PRN Reason: NAUSEA/VOMITING Ondansetron HCl (Zofran Odt) 4 mg PO Q6H PRN PRN PRN Reason: NAUSEA Pantoprazole Sodium (Protonix) 40 mg PO BID [facility] Last Admin: 10/05/18 21:41 Dose: 40 mg Promethazine HCl (Phenergan) 6.25 mg IV Q6H PRN PRN PRN Reason: NAUSEA/VOMITING Last Admin: 10/06/18 06:22 Dose: 6.25 mg Quetiapine Fumarate (Seroquel) 25 mg PO Q6H PRN PRN PRN Reason: agitation, anxiety Last Admin: 10/06/18 06:22 Dose: 25 mg Senna (Senokot) 1 tablet PO QHS PRN PRN Reason: Constipation Sodium Chloride () 5 - 15 ml IV UD PRN PRN Reason: SALINE FLUSH Last Admin: 10/05/18 19:11 Dose: 10 ml Thiamine HCl (Vitamin B1) [facility] Last Admin: 10/05/18 10:27 Dose: 100 mg Trazodone HCl (Desyrel) 50 mg PO QHS [facility] Last Admin: 10/05/18 21:41 Dose: 50 mg Medical Necessity - Tobacco Use Smoking Status: Never smoker Assessment/Plan All Active Problems Acute cystitis (Acute) Alcohol intoxication (Acute) The patient is a 38 y/o F w/ PMHx: EtOH Abuse with History of DTs, History Prior Alcoholic Pancreatitis who presents to the [facility] ED on 10/03/18 w/ history of recent heavy alcohol intoxication with now attempts at sobriety with onset of tremors, restlessness, agitation with persistent nausea vomiting and epigastric discomfort in addition to recently noted dysuria and foul-smelling urine. (1) Acute on Chronic pancreatitis w/ abdominal pain, N/V: Admission Lipase 863. Admitted to PCU secondary to history of DTs, maintained on aggressive IVFs, NPO initially with transition to clears-->fulls, will now transition to cardiac diet given improvement, transition IV PPI to oral regimen, admission lipase 863 w/ AST/ALT 342/257-->10/05/18 lipase 477-->10/06/18 lipase 859 although clinically improved and tolerating diet despite increased lipase again. Patient with chronically elevated LFTs; however, increased, admission AST?ALT 342/257-->10/05/18 AST/ALT 417/218 thus obtained liver US/GB US which was unremarkable, repeat 10/06/18 AST/ALT 160/184, improving now. 10/06/18 Lipid panel w/ T Chol 251, LFL 149, VLDL 15, HDL 87. Hepatitis panel pending. (2) Acute EtOH Withdrawal: Initially intoxicated, 10/04/18 in active withdrawal, initiated and continued on [facility] service protocol with taper course of librium, as needed Seroquel, Catapres, Bentyl, Vistaril, IV fluids, IV antiemetics, Tylenol as needed for pain. Mag, phos obtained and supplemented as noted. Maintain on CIWA protocol. Maintain on thiamine, folic acid, MVI. Taper completion 10/07/18, [facility] assisting with next step in withdrawal care following discharge. (3) Acute E. Coli Urinary Tract Infection: UA upon ED evaluation remarkable, admission CBC not marked, continue IVFs, monitor I/Os, continue IV Rocephin w/ transition as able pending sensitivities and speciation. (4) Polysubstance Abuse: UDS BZD, Cannabis, EtOH abuse 524, [facility] following, continue treatment as noted #2. Hepatitis, HIV, GC/Chl pending. (5) Hypokalemia: Admission K+ 3.3, supplementation given, repeat level 10/06/18 K 4.4. (6) Hypomagnesium: Magnesium level 1, supplementation administered, repeat level 1.5, administer additional magnesium. (7) Thrombocytopenia, chronic: Admission platelet 114, repeat 10/06/18 71, suspected secondary to EtOH abuse, continue to monitor. (8) Elevated LFTs, Acute on Chronic: Patient with chronically elevated LFTs; however, increased, admission AST?ALT 342/257-->10/05/18 AST/ALT 417/218 thus obtained liver US/GB US which was unremarkable, repeat 10/06/18 AST/ALT 160/184, improving now. Hepatitis panel pending. (9) DVT Prophylaxis: TORRIE, defer chemoprophylaxis given thrombocytopenia. Code Visit Inpatient E&M: 84963 Subs Hosp L2
[2018-10-06 08:24] LABS: Absolute Lymphocyte Count 0.67 X10^3/ul (0.83-4.51); Absolute Neutrophil Count 1.5 X10^3/uL (2.0-7.7); Basophil# 0.03 X10^3/uL; Eosinophil# 0.15 X10^3/uL; Eosinophils% 5.2 % (0-5); Hematocrit 41.2 % (37-47); Hemoglobin 13.3 g/dl (12.0-15.0); Lymphocyte # 0.67 X10^3/ul (4.0); Mean Corp Hgb Conc 32.3 g/gl (32-36); Mean Corpuscular Hgb 32.4 pg (27.0-32.0); Mean Corpuscular Volume 100.2 fL (81-99); Mean Platelet Vol. 9.3 fl (6.2-12.0); Monocyte# 0.52 X10^3/uL; Monocyte% 17.9 % (0-10); Neutrophil # 1.53 X10^3/uL (2.7-7.7); Neutrophil % 52.6 % (47-70); POSITIVE COUNT NO; POSITIVE DIFFERENTIAL NO; POSITIVE MORPHOLOGY NO; Platelet Count 71 K/mm3 (150-450); RBC Distribution Width CV 15.5 % (11.6-14.6); RBC Distribution Width SD 57.2 fl (35.1-43.9); Red Blood Count 4.11 M/mm3 (4.2-5.4); White Blood Count 2.9 K/mm3 (4.4-11.0)
--- NOTE | 2018-10-06 08:41 | NURSING ---
Informed by credit charge authorizer that patient and family were out at the desk and had questions and concerns that needed addressed. This RN went back to room and patient was getting dressed/cleaned up for the day. They asked that this RN return in 10-15 minutes to address needs. Will continue to monitor.
[2018-10-06 08:43] LABS: AST(SGOT) 160 U/L (15-37); Alanine Aminotransfer ALT/SGPT 184 U/L (13-56); Albumin, Serum 3.2 g/dL (3.2-5.0); Alkaline Phosphatase 73 U/L (45-117); Anion Gap 9 (5-15); BUN 9 mg/dL (7-18); BUN/Creat Ratio 11.8 RATIO (10-20); Calcium,Total 8.7 mg/dL (8.5-10.1); Chloride 110 mmol/L (98-107); Cholesterol 251 mg/dL (200); Creatinine, Serum 0.76 mg/dL (0.55-1.02); EST Glomerular Filtration Rate 91 mL/min (>60); Est Glom Filt Rate - Afr Amer 110 mL/min (>60); Estimated Creatinine Clearance 80.16 ml/min; Globulin 3.2 g/dL (2.2-4.2); Glucose 107 mg/dL (74-106); High Density Lipoprotein 87 mg/dL; Lipase 859 U/L (73-393); Potassium 4.4 mmol/L (3.5-5.1); Protein, Total 6.4 g/dL (6.4-8.2); Sodium Level 143 mmol/L (136-145); Triglycerides 73 mg/dL; Very Low Density Lipoprotein 15 mg/dL (5-40)
[2018-10-06] MEDS: Thiamine Hydrochloride 100 MG Tablet PO (09:38)
[2018-10-06] MEDS: Folic Acid 1 MG Tablet PO (09:38)
[2018-10-06] MEDS: Pantoprazole Sodium 40 MG Tablet PO ×2 (09:38→21:21)
[2018-10-06] MEDS: Multivitamins,Therapeutic Tablet 1 TABLET PO (09:38)
[2018-10-06] MEDS: Ceftriaxone 1 GM/50 ML BAG IV (10:04)
[2018-10-06] MEDS: Loperamide 2 MG Capsule PO (10:59)
[2018-10-06 13:11] LABS: HIV - WCH Non-Reactive (Nonreactive)
[2018-10-06 18:45] LABS: Chlamydia Trachomatis by PCR Negative (Negative); Neisserai gonorrhoeae by PCR Negative (Negative); Probe Check PASS; Sample Adequacy Control PASS; Specimen Processing Control PASS
[2018-10-06] MEDS: 0.9% NaCl Peripheral Flush Adult/Peds IV ×2 (20:40→21:23)
[2018-10-06] MEDS: Dicyclomine 10 MG Capsule 20 MG PO (20:41)
[2018-10-06] MEDS: traZODone 50 MG Tablet PO (21:21)
[2018-10-06] MEDS: hydrOXYzine PAM 25 MG Capsule 50 MG PO (23:52)
[2018-10-07 01:22] VITALS: BP 129/85; PULSE 105; RESP 18; TEMP 36.6; O2SAT 97
[2018-10-07] MEDS: LORazepam 1 MG Tablet 2 MG PO ×2 (01:27→04:38)
[2018-10-07] MEDS: Dicyclomine 10 MG Capsule 20 MG PO (02:52)
[2018-10-07 04:31] VITALS: BP 122/78; PULSE 86; RESP 18; TEMP 36.6; O2SAT 97
[2018-10-07 04:33] VITALS: BP 122/78; PULSE 86; RESP 18; TEMP 36.6
[2018-10-07 06:59] LABS: Absolute Lymphocyte Count 1.18 X10^3/ul (0.83-4.51); Absolute Neutrophil Count 1.6 X10^3/uL (2.0-7.7); Basophil% 2.6 % (0-1); Eosinophil# 0.19 X10^3/uL; Hematocrit 42.6 % (37-47); Hemoglobin 13.7 g/dl (12.0-15.0); Lymphocyte # 1.18 X10^3/ul (4.0); Lymphocyte % 30.9 % (19-41); Mean Corp Hgb Conc 32.2 g/gl (32-36); Mean Corpuscular Hgb 32.3 pg (27.0-32.0); Mean Corpuscular Volume 100.5 fL (81-99); Mean Platelet Vol. 9.9 fl (6.2-12.0); Monocyte# 0.76 X10^3/uL; Monocyte% 19.9 % (0-10); Neutrophil # 1.57 X10^3/uL (2.7-7.7); Neutrophil % 41.1 % (47-70); Platelet Count 106 K/mm3 (150-450); RBC Distribution Width CV 15.9 % (11.6-14.6); Red Blood Count 4.24 M/mm3 (4.2-5.4); White Blood Count 3.8 K/mm3 (4.4-11.0)
[2018-10-07 07:01] LABS: POSITIVE COUNT NO; POSITIVE DIFFERENTIAL NO; POSITIVE MORPHOLOGY NO
[2018-10-07 07:20] VITALS: O2SAT 98
[2018-10-07 07:20] LABS: AST(SGOT) 107 U/L (15-37); Alanine Aminotransfer ALT/SGPT 155 U/L (13-56); Albumin, Serum 3.1 g/dL (3.2-5.0); Alkaline Phosphatase 64 U/L (45-117); Anion Gap 11 (5-15); BUN 6 mg/dL (7-18); BUN/Creat Ratio 8.9 RATIO (10-20); Calcium,Total 8.8 mg/dL (8.5-10.1); Chloride 108 mmol/L (98-107); Creatinine, Serum 0.67 mg/dL (0.55-1.02); EST Glomerular Filtration Rate 105 mL/min (>60); Est Glom Filt Rate - Afr Amer 127 mL/min (>60); Estimated Creatinine Clearance 90.93 ml/min; Globulin 3.2 g/dL (2.2-4.2); Glucose 96 mg/dL (74-106); Lipase 781 U/L (73-393); Potassium 3.8 mmol/L (3.5-5.1); Protein, Total 6.3 g/dL (6.4-8.2); Sodium Level 142 mmol/L (136-145)
[2018-10-07 08:00] VITALS: BP 133/95; PULSE 110; RESP 18; TEMP 36.4; O2SAT 97
--- NOTE | 2018-10-07 08:07 | PCM.DC ---
- Discharge Diagnoses Current Active Problems: Current Active and Chronic Problems (1) Acute on Chronic pancreatitis w/ abdominal pain, N/V (2) Acute EtOH Withdrawal (3) Acute E. Coli Urinary Tract Infection (4) Polysubstance Abuse (5) Hypokalemia (6) Hypomagnesium (7) Thrombocytopenia, Acute on Chronic (8) Elevated LFTs, Acute on Chronic You will use the following diet at home:: Regular Your food should be the consistency of: Regular Your liquids should be the consistency of: Regular/Thin Discharge Activity: - - Please avoid driving until re-assessment per your PCP and clearance. May resume sexual activity in: - - Hepatitis panel remains pending upon your discharge. HIV and both gonorrhea and chlamydia testing were negative. Call your doctor if you observe: Fever of 101 or Higher, Inability to urinate, Inability to have a bowel movement, Shortness of breath, Dizziness, Fainting spells, Chest pain, Uncontrolled pain Instructions: Understanding Alcoholism, Alcoholism: Myths and Facts, The Impact of Alcoholism, Alcohol Withdrawal: What to Expect, Addiction: Getting Help, Addiction: Your Treatment Options, Discharge Instructions for Acute Pancreatitis, Discharge Instructions for Chronic Pancreatitis, Understanding Urinary Tract Infections (UTIs) Pending Tests on Discharge: Hepatitis panel pending upon discharge. Please follow-up these results with your primary care physician. Allergies/Adverse Reactions: Allergies No Known Allergies Allergy (Verified 10/03/18 17:52) Medications to take at Discharge Folic Acid 1 mg PO DAILYCM #30 tab 10/07/18 Multivitamins,Therapeutic [Multivitamin] 1 tab PO DAILYCM #30 tab 10/07/18 Thiamine Hydrochloride [Vitamin B1] 100 mg PO DAILYCM #30 tab 10/07/18 The following prescriptions were given: Folic Acid 1 mg PO DAILYCM #30 tab Multivitamins,Therapeutic [Multivitamin] 1 tab PO DAILYCM #30 tab Thiamine Hydrochloride [Vitamin B1] 100 mg PO DAILYCM #30 tab Primary Care Physician: Care Physician,No Primary [Primary Care Provider] - Please follow up with your Primary Care Physician in: Please establish with PCP, follow-up within 3-5 days. Test Results: Test results from this visit will be discussed in further detail at your follow-up appointment, if applicable. Please Follow Up With: [facility] When: Continue with next step in [facility] plan of care. Proposed Discharge Date: 10/07/18
[2018-10-07 08:11] VITALS: BP 133/110; PULSE 110; RESP 14; TEMP 36.4
--- NOTE | 2018-10-07 08:14 | DCINST_ITS ---
- Discharge Diagnoses Current Active Problems: Current Active and Chronic Problems (1) Acute on Chronic pancreatitis w/ abdominal pain, N/V (2) Acute EtOH Withdrawal (3) Acute E. Coli Urinary Tract Infection (4) Polysubstance Abuse (5) Hypokalemia (6) Hypomagnesium (7) Thrombocytopenia, Acute on Chronic (8) Elevated LFTs, Acute on Chronic You will use the following diet at home:: Regular Your food should be the consistency of: Regular Your liquids should be the consistency of: Regular/Thin Discharge Activity: - - Please avoid driving until re-assessment per your PCP and clearance. May resume sexual activity in: - - Hepatitis panel remains pending upon your discharge. HIV and both gonorrhea and chlamydia testing were negative. Call your doctor if you observe: Fever of 101 or Higher, Inability to urinate, Inability to have a bowel movement, Shortness of breath, Dizziness, Fainting spells, Chest pain, Uncontrolled pain Instructions: Understanding Alcoholism, Alcoholism: Myths and Facts, The Impact of Alcoholism, Alcohol Withdrawal: What to Expect, Addiction: Getting Help, Addiction: Your Treatment Options, Discharge Instructions for Acute Pancreatitis, Discharge Instructions for Chronic Pancreatitis, Understanding Urinary Tract Infections (UTIs) Pending Tests on Discharge: Hepatitis panel pending upon discharge. Please follo w-up these results with your primary care physician. Allergies/Adverse Reactions: Allergies No Known Allergies Allergy (Verified 10/03/18 17:52) Medications to take at Discharge Folic Acid 1 mg PO DAILYCM #30 tab 10/07/18 Multivitamins,Therapeutic [Multivitamin] 1 tab PO DAILYCM #30 tab 10/07/18 Thiamine Hydrochloride [Vitamin B1] 100 mg PO DAILYCM #30 tab 10/07/18 The following prescriptions were given: Folic Acid 1 mg PO DAILYCM #30 tab Multivitamins,Therapeutic [Multivitamin] 1 tab PO DAILYCM #30 tab Thiamine Hydrochloride [Vitamin B1] 100 mg PO DAILYCM #30 tab Primary Care Physician: Care Physician,No Primary [Primary Care Provider] - Please follow up with your Primary Care Physician in: Please establish with PCP, follow-up within 3-5 days. Test Results: Test results from this visit will be discussed in further detail at your follow- up appointment, if applicable. Please Follow Up With: [facility] When: Continue with next step in [facility] plan of care. Proposed Discharge Date: 10/07/18
[2018-10-07] MEDS: Pantoprazole Sodium 40 MG Tablet PO (08:17)
[2018-10-07] MEDS: Thiamine Hydrochloride 100 MG Tablet PO (08:17)
[2018-10-07] MEDS: Folic Acid 1 MG Tablet PO (08:17)
[2018-10-07] MEDS: Multivitamins,Therapeutic Tablet 1 TABLET PO (08:17)
[2018-10-07] MEDS: Acetaminophen 500 MG Tablet PO (08:20)
[2018-10-07] MEDS: hydrOXYzine PAM 25 MG Capsule 50 MG PO (08:22)
--- NOTE | 2018-10-07 08:22 | DS.PCM_ITS ---
Discharge Date and Diagnosis - Problem List Patient Problems: Active and Suspected Problems Acute cystitis (Acute) Alcohol intoxication (Acute) Date of Admission: 10/03/18 Date of Discharge: 10/07/18 - Primary Discharge Diagnosis Active and Suspected Problems (1) Acute on Chronic pancreatitis w/ abdominal pain, N/V (2) Acute EtOH Withdrawal (3) Acute E. Coli Urinary Tract Infection (4) Polysubstance Abuse (5) Hypokalemia (6) Hypomagnesium (7) Thrombocytopenia, Acute on Chronic (8) Elevated LFTs, Acute on Chronic - Secondary Discharge Diagnosis Chronic Problems History of alcohol withdrawal seizure (Chronic) Alcohol abuse (Chronic) Alcoholic pancreatitis (Chronic) Hospital Course and Treatment [facility] Acute EtOH Withdrawal Operations: None Procedures: EKG Summary of Care Provided: The patient is a 38 y/o F w/ PMHx: EtOH Abuse with History of DTs, History Prior Alcoholic Pancreatitis who presented to the [facility] ED on 10/03/18 w/ history of recent heavy alcohol intoxication with now attempts at sobriety with onset of tremors, restlessness, agitation with persistent nausea vomiting and epigastric discomfort in addition to recently noted dysuria and foul-smelling urine. Admission Lipase 863. Admitted to PCU secondary to history of DTs, maintained on aggressive IVFs, NPO initially with transition to clears-->fulls and eventual cardiac diet given improvement, transitioned IV PPI to oral regimen, admission lipase 863 w/ AST/ALT 342/257-->10/05/18 lipase 477-->10/07/18 lipase 781; however, clinically improved and tolerated diet despite increased lipase again, suspect likely some chronic elevation. Patient with chronically elevated LFTs; however, increased, admission AST/ALT 342/257-->10/05/18 AST/ALT 417/218 thus obtained liver US/GB US which was unremarkable, repeat 10/07/18 AST/ALT 107/155, improved. 10/06/18 Lipid panel w/ T Chol 251, LFL 149, VLDL 15, HDL 87. Hepatitis panel pending upon discharge with recommended follow-up with PCP with list given and VM left for their office prior to patient discharge per staff. Patient initially intoxicated, 10/04/18 in active withdrawal, initiated and continued on [facility] service protocol with taper course of librium, as needed Seroquel, Catapres, Bentyl, Vistaril, IV fluids, IV antiemetics, Tylenol as needed for pain. Mag, phos obtained and supplemented. Maintained on CIWA protocol. Maintained on thiamine, folic acid, MVI with rx given upon discharge. Taper completion 10/07/18 with [facility] assist with next step in withdrawal care following discharge. Additionally upon admission UA upon ED evaluation remarkable, treated with course IV Rocephin while inpatient. Admission platelet 114, repeat 10/06/18 71-->10/07/18 Plt 106, improving, secondary to EtOH abuse. Patient discharged to home in improved condition with recommended PCP follow-up/establishment as well as to continue with next step in [facility] plan of care. DAY OF DISCHARGE PROGRESS NOTE: Subjective: Patient without acute event overnight per self and nursing report. Patient continued to tolerate her diet with no recurrent epigastric discomfort. Patient notes that alcohol withdrawal symptoms have resolved and she is feeling well and eager for discharge. Patient denies fever, chills, nausea, emesis, abdominal pain, chest pain or dyspnea. Patient agreeable to discharge to home. Patient will be discharged with follow-up with primary care physician within 3-5 days in addition to continuation of [facility] next step in her plan of care. Objective: T 97.8, heart rate 86, BP 122/78, respiratory rate 18, 97% on room air. Physical Examination: General: awake, alert, oriented x 3 and cooperative, seated upright in bed, NAD, notes feeling well, tolerating diet, no pain. Skin: normal color, turgor, no icterus, cyanosis. HEENT: AT/NC, EOMI, PERRLA, MMM. Lungs: CTA bilaterally, moderate effort, mild decrease BL bases, no rales, ronchi or wheezing. Heart: Regular rate and rhythm; no gallop, rub audible. Abdomen: soft, NTTP, ND, normal BS. Extremities: no cyanosis, clubbing, or edema. Neurological: patient awake, alert, oriented x 3 no longer hallucinating; tremors currently resolved; cognitive function markedly improved, baseline intact; pupils equally reactive to light and accomodation; cranial nerves II-XII grossly normal, moving all 4 extremities, no focal deficits, strength improving, mildly decreased. Psychiatric: affect appears normal, no acute evidence of depressive or anxiety feelings. Assessment and Plan: Please see hospital summary above. Patient Problems: Active and Suspected Problems Acute cystitis (Acute) Alcohol intoxication (Acute) - Physical Exam Vital Signs Temp Pulse Resp BP Pulse Ox 97.5 F L 110 H 14 133/110 H 97 10/07/18 08:11 10/07/18 08:11 10/07/18 08:11 10/07/18 08:11 10/07/18 08:00 Oxygen Delivery Method Room Air Weight: 130 lb 15.273 oz Body Mass Index (BMI) 23.9 Intake and Output for Last 24 Hours 10/05/18 10/06/18 10/07/18 23:59 23:59 23:59 Intake Total 4913 / 4913 3022 / 3022 200 / 200 Balance 4913 / 4913 3022 / 3022 200 / 200 Microbiology Past 72 Hours 10/03/18 19:30 Urine Culture - Final Urine, Clean Catch Presumptive E. coli Laboratory Tests Past 24 Hrs 10/03/18 10/06/18 10/06/18 18:58 08:05 08:05 WBC 2.9 L RBC 4.11 L Hgb 13.3 Hct 41.2 MCV 100.2 H MCH 32.4 H MCHC 32.3 RDW 15.5 H RDW Differential 57.2 H Plt Count 71 L MPV 9.3 Immature Gran % (Auto) 0.300 Neut % (Auto) 52.6 Lymph % (Auto) 23.0 [place] % (Auto) 17.9 H Eos % (Auto) 5.2 H Baso % (Auto) 1.0 Absolute Neuts (auto) 1.5 L Absolute Lymphs (auto) 0.67 L Total Counted Not Reportable Sodium 143 Potassium 4.4 Chloride 110 H Carbon Dioxide 24.0 Anion Gap 9 BUN 9 Creatinine 0.76 Estim Creat Clear Calc 80.16 Est GFR (MDRD) Af Amer 110 Est GFR (MDRD) Non-Af 91 BUN/Creatinine Ratio 11.8 Glucose 107 H Calcium 8.7 Total Bilirubin 0.40 AST 160 H ALT 184 H Alkaline Phosphatase 73 Total Protein 6.4 Albumin 3.2 Globulin 3.2 Albumin/Globulin Ratio 1.0 Triglycerides 73 Cholesterol 251 H LDL Cholesterol 149 H VLDL Cholesterol 15 HDL Cholesterol 87 Lipase 859 H Chlam trachomat DNA PCR Hepatitis A IgM Ab Hepatitis A Ab Total Hep Bs Antigen Hep B Core Total Ab Hep B Core IgM Ab HIV 1&2 Antibody Non-Reactive N.gonorrhoeae DNA (PCR) 10/06/18 10/06/18 10/07/18 16:50 Unknown 06:17 WBC 3.8 L RBC 4.24 Hgb 13.7 Hct 42.6 MCV 100.5 H MCH 32.3 H MCHC 32.2 RDW 15.9 H RDW Differential 58.0 H Plt Count 106 L MPV 9.9 Immature Gran % (Auto) 0.500 Neut % (Auto) 41.1 L Lymph % (Auto) 30.9 [place] % (Auto) 19.9 H Eos % (Auto) 5.0 Baso % (Auto) 2.6 H Absolute Neuts (auto) 1.6 L Absolute Lymphs (auto) 1.18 Total Counted Not Reportable Sodium Potassium Chloride Carbon Dioxide Anion Gap BUN Creatinine Estim Creat Clear Calc Est GFR (MDRD) Af Amer Est GFR (MDRD) Non-Af BUN/Creatinine Ratio Glucose Calcium Total Bilirubin AST ALT Alkaline Phosphatase Total Protein Albumin Globulin Albumin/Globulin Ratio Triglycerides Cholesterol LDL Cholesterol VLDL Cholesterol HDL Cholesterol Lipase Chlam trachomat DNA PCR Negative Hepatitis A IgM Ab Pending Hepatitis A Ab Total Pending Hep Bs Antigen Pending Hep B Core Total Ab Pending Hep B Core IgM Ab Pending HIV 1&2 Antibody N.gonorrhoeae DNA (PCR) Negative 10/07/18 06:17 WBC RBC Hgb Hct MCV MCH MCHC RDW RDW Differential Plt Count MPV Immature Gran % (Auto) Neut % (Auto) Lymph % (Auto) [place] % (Auto) Eos % (Auto) Baso % (Auto) Absolute Neuts (auto) Absolute Lymphs (auto) Total Counted Sodium 142 Potassium 3.8 Chloride 108 H Carbon Dioxide 23.0 Anion Gap 11 BUN 6 L Creatinine 0.67 Estim Creat Clear Calc 90.93 Est GFR (MDRD) Af Amer 127 Est GFR (MDRD) Non-Af 105 BUN/Creatinine Ratio 8.9 L Glucose 96 Calcium 8.8 Total Bilirubin 0.40 AST 107 H ALT 155 H Alkaline Phosphatase 64 Total Protein 6.3 L Albumin 3.1 L Globulin 3.2 Albumin/Globulin Ratio 1.0 Triglycerides Cholesterol LDL Cholesterol VLDL Cholesterol HDL Cholesterol Lipase 781 H Chlam trachomat DNA PCR Hepatitis A IgM Ab Hepatitis A Ab Total Hep Bs Antigen Hep B Core Total Ab Hep B Core IgM Ab HIV 1&2 Antibody N.gonorrhoeae DNA (PCR) Discharge Activity: - - Please avoid driving until re-assessment per your PCP and clearance. May resume sexual activity in: - - Hepatitis panel remains pending upon your discharge. HIV and both gonorrhea and chlamydia testing were negative. Call your doctor if you observe: Fever of 101 or Higher, Inability to urinate, Inability to have a bowel movement, Shortness of breath, Dizziness, Fainting spells, Chest pain, Uncontrolled pain Home Medications: Medications to take at Discharge Folic Acid 1 mg PO DAILYCM #30 tab 10/07/18 Multivitamins,Therapeutic [Multivitamin] 1 tab PO DAILYCM #30 tab 10/07/18 Thiamine Hydrochloride [Vitamin B1] 100 mg PO DAILYCM #30 tab 10/07/18 Following Prescrptions Were Given to Patient: Folic Acid 1 mg PO DAILYCM #30 tab Multivitamins,Therapeutic [Multivitamin] 1 tab PO DAILYCM #30 tab Thiamine Hydrochloride [Vitamin B1] 100 mg PO DAILYCM #30 tab Primary Care Physician: Care Physician,No Primary [Primary Care Provider] - Please follow up with your Primary Care Physician in: Please establish with PCP, follow-up within 3-5 days. Please Follow Up With: [facility] When: Continue with next step in [facility] plan of care. Patient Instructions: Understanding Urinary Tract Infections (UTIs), Understanding Alcoholism, Alcoholism: Myths and Facts, The Impact of Alcoholism, Alcohol Withdrawal: What to Expect, Addiction: Getting Help, Addiction: Your Treatment Options, Discharge Instructions for Acute Pancreatitis, Discharge Instructions for Chronic Pancreatitis Disposition: Home Minutes spent on discharge:: 35 Patient Condition:: Fair Medical Necessity - Tobacco Use Smoking Status: Never smoker Meaningful Use Info Meaningful Use Diagnoses (Choose all that apply): None applicable Code Visit Inpatient E&M: 55041 Disch Hosp
--- NOTE | 2018-10-07 11:37 | NURSING ---
Pt took list of PCP's with her but refused to go to any of the physicians here in [place]. She states she lives in [place] and wants to talk to some people that she knows to see who she wants to follow up with.
--- NOTE | 2018-10-07 11:53 | NURSING ---
Pt fully clothed requesting to have d/c papers so that she can leave. This RN finished discharging pt- did not realize pt still had IV. This RN attempted to call patient x2- sent to [employer] box that was not set up. This RN then called Guy - number obtained from pt's demographic sheet. Guy answered phone- this RN asked him if he was with a patient today at [facility] and he stated that he was and gave me pt's name. This RN then notified Guy that patient left hospital with IV. 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
[2018-10-07 16:06] LABS: HEPATITIS B SURFACE AG Negative (Negative); Hepatitis A IgM Antibody Negative (Negative); Hepatitis B Core AB IgM Negative (Negative); Hepatitis B Core Ab Total Negative (Negative); Hepatitis C Ab 0.1 s/co ratio (0.0-0.9)
[2018-10-08 11:23] LABS: Hep B Surface Antibodies Reactive (.)
[2018-10-08 11:30] LABS: Hepatitis A AB, Total Positive (Negative)
== END 2018-10-07 08:38 | disposition home or self-care (01) | DRG 282 ==
LOC: ED 19:50 → PCU 20:06 → MS3 10-05 00:41
PROVIDERS: Admitting Provider Hospitalist; Emergency Provider Emergency Medicine; Referring Provider Hospitalist; Visit Provider Family Medicine
DX: K85.20 Alcohol induced acute pancreatitis without necrosis or infection (principal); F10.129 Alcohol abuse with intoxication, unspecified; Y90.8 Blood alcohol level of 240 mg/100 ml or more; K86.0 Alcohol-induced chronic pancreatitis; N30.00 Acute cystitis without hematuria; B96.20 Unspecified Escherichia coli [E. coli] as the cause of diseases classified elsewhere; F10.239 Alcohol dependence with withdrawal, unspecified; E87.6 Hypokalemia; E83.42 Hypomagnesemia; D69.59 Other secondary thrombocytopenia; N17.9 Acute kidney failure, unspecified; F12.10 Cannabis abuse, uncomplicated; F13.10 Sedative, hypnotic or anxiolytic abuse, uncomplicated; R74.8 Abnormal levels of other serum enzymes
CPT/HCPCS: 36415; 76705; 80053; 80061; 80307; 80320; 81001; 81025; 83690; 83735; 84100; 84703; 85025; 85610; 86703; 86704; 86705; 86706; 86708; 86709; 86803; 87086; 87088; 87186; 87340; 87491; 87591; 99284; J7030; A4216; G0480; J2405